=== PATIENT | male | born 1990 | race Caucasian/White ===

== ENCOUNTER 2018-06-18 18:05 | Inpatient (IN) | payer MEDICARE, MEDICAID, SELFPAY ==
[2018-06-18 18:33] VITALS: BP 133/82; PULSE 91; RESP 22; TEMP 36.8; O2SAT 99
--- NOTE | 2018-06-18 19:00 | W.ED.GENAD ---
Discharge Plan Discharge Details Chief Complaint: Cellulitis Reason For Visit: CELLULITIS WITH ABSCESS Admit Date/Time: 06/18/18 21:07 Admit Provider: Rc Ordaz Attending Provider: Rc Ordaz Primary Care Provider: Norberto Kern ED Provider: Darwin Renteria Discharge Data Discharge Date/Time-TO BE ENTERED AT DEPARTURE: 06/18/18 22:05 Medical Decision Making Plan to start IV. Evaluate typical labs for cellulitis including BC and start IV Clindamycin. Will CT arm to evaluate for FB and severity of cellulitis. Patient tolerated Clindamycin. Initial order was for 600mg mg. Pt tolerated well. #00mg dose ordered to piggyback off the original 600mg to give him full dose of 900mg. I agreed to provide pain relief with .5mg of dilaudid. Arm is now starting to ooze from the needle entry site. Less redness and swelling but arm is grossly swollen and red. CT did confirm cellulitis and streaking artifact related to density contrast in the venous system but no measurable fluid to suggest abscess. Labs consistent with infection with elevated WBC and CRP. I called and discussed case with Dr. Ordaz. He agreed to admission with possible consult with surgery tomorrow. Pt apprised and agrees. Holding orders placed. Pt pending completion of remaining 300mg and admission up stairs. Imaging Data Radiologic Study: Imaging: CT Scan Radiologist's impression: v-rad: 1. Generalized subcutaneous edema and skin thickening about the elbow compatible with cellulitis. 2. Streak artifact related to density of contrast in the venous system, however no measurable fluid collections are seen to suggest abscess. Lab Data Elevated WBC, CRP, anion gap, and ESR to support infectious pathology. HPI General Mode of arrival: ambulatory. Date/Time Provider Initiated Documentation: 06/18/18 18:26. Limitations to Documentation: no limitations. Information obtained by: patient and family (mom). History of Present Illness 28 year old M presents to the emergency department with the chief complaint of Cellulitis , described as moderate, and is localized to the left (arm). Patient did receive the following treatments prior to arrival, none HPI Narrative: 28 y/o male came in with mom with concerns of left arm redness and swelling. Papito admits to injecting Ritalin routinely in his left AC. Today he noticed increased swelling, redness and pain. Denies any symptoms he is anxious and states he does not want to lose his arm. Mom tells me oral pill antibiotics do not work with Papito even as a child. He would need liquid. I did review last visit note back in September of this year, eight months ago he was treated for submandible abscess with IV Clindamycin with good affect. Discharged home on Augmentin but did fail outpatient therapy. Subsequently he was transferred to [facility] for worsening Submandible abscess and was in patient at [facility] for in patient antibiotics. Related Data Home Medications Medication Instructions Recorded Confirmed albuterol sulfate [ProAir HFA] 2 puff INHALATION Q4H PRN PRN #1 05/22/15 06/18/18 hfa.aer.ad pantoprazole [Protonix] 40 mg PO DAILY #90 tab-cap 05/23/17 06/18/18 acetaminophen [Mapap Extra 2 ea PO PRN PRN 08/04/17 06/18/18 Strength] clonazepam 1 mg tablet 1 mg PO BID #60 tab-cap 06/13/18 06/18/18 methylphenidate 20 mg tablet 20 mg PO BID #60 tab-cap MDD 40 mg 06/13/18 06/18/18 Previous Rx's Medication Instructions Recorded albuterol sulfate [ProAir HFA] 2 puff INHALATION Q4H PRN PRN #1 05/22/15 hfa.aer.ad pantoprazole [Protonix] 40 mg PO DAILY #90 tab-cap 05/23/17 clonazepam 1 mg tablet 1 mg PO BID #60 tab-cap 06/13/18 methylphenidate 20 mg tablet 20 mg PO BID #60 tab-cap MDD 40 mg 06/13/18 Allergies Allergy/AdvReac Type Severity Reaction Status Date / Time cephalexin Allergy Intermediate Rash Unverified 06/18/18 18:39 codeine AdvReac Mild GI Upset Unverified 06/18/18 18:39 in pill form only General Stated Complaint: Cellulitis JOANNA: 4 Review of Systems Constitutional Reports as per [facility] ENT Reports system reviewed and no additional complaints, except as docu Cardiovascular Reports system reviewed and no additional complaints, except as docu Respiratory Reports system reviewed and no additional complaints, except as docu Gastrointestinal Reports system reviewed and no additional complaints, except as docu Integumentary/Breasts Reports other (left arm redness and pain) Neurologic Reports system reviewed and no additional complaints, except as [facility] Psych[facility] Reports system reviewed and no additional complaints, except as [facility] Family History Other Drug abuse by member of household Medical History Obesity (Chronic) Mild intermittent asthma without complication (Chronic 06/04/15) Gastroesophageal reflux disease (Chronic) Attention deficit hyperactivity disorder, predominantly inattentive type (Chronic) Anxiety (Chronic 01/18/13) Allergic rhinitis (Chronic) Dental caries (Chronic) Submandibular abscess (Resolved ~09/2017) Social History Smoking/Tobacco Use Status: Never substance use type: heroin Exam Const General: cooperative and anxious Orientation: alert, awake and oriented x3 HENMT Head: normal to inspection Ears: hearing grossly normal bilaterally General nose exam: external nose normal Face and sinus: normal facial exam Mouth: oral mucosae normal Eyes General: appearance normal, both eyes and all related structures Neck Neck: normal visual inspection, full ROM and no lymphadenopathy Resp Effort & Inspection: normal respiratory effort Auscultation: clear to auscultation bilaterally Cardio Rate: regular rate Rhythm: regular rhythm Heart Sounds: S1 normal and S2 normal GI Inspection: normal to inspection Palpation: soft Auscultation: normal bowel sounds Skin General skin exam: erythema (left AC is red, swollen, with tight skin. No drainage. Warm to touch), fluctuance and induration Full body images: 1. Moderate induration with no axilla adenopathy or lymphadema. Neuro General: alert, awake and oriented x3 Cognition: normal cognition Gait: normal gait Extrem Elbow/forearm/wrist images: 1. Area of redness and indration. Drainage oozing from PW site where he injected. Less ROM at the elbow secondary to pain and swelling. Psych Appearance: grossly normal Mood: anxious mood Affect: anxious affect Attitude: cooperative Thought Process: normal Insight: poor Judgment: poor Course Vital Signs Temperature 36.8 C 06/18/18 18:33 Pulse 91 H 06/18/18 18:33 Respiratory Rate 22 06/18/18 18:33 Blood Pressure 133/82 06/18/18 18:33 Pulse Oximetry 99 06/18/18 18:33 Temperature 36.8 C 06/18/18 18:33 Temperature Source Skin 06/18/18 18:33 Pulse 91 H 06/18/18 18:33 Respiratory Rate 22 06/18/18 18:33 Respiratory Effort Non-Labored 06/18/18 18:36 Blood Pressure 133/82 06/18/18 18:33 Blood Pressure Position Sitting 06/18/18 18:33 Pulse Oximetry 99 06/18/18 18:33 Oxygen Delivery Method Room Air 06/18/18 18:33 Oxygen Flow Rate 0 06/18/18 18:33 Pain Level 8 06/18/18 18:33 Lab/Test Results Lab/Test Results: 06/18/18 18:55 Blood Blood Culture - Pending 06/18/18 18:55 Blood Blood Culture - Pending
--- NOTE | 2018-06-18 19:03 | ED.GENADUL_ITS ---
Discharge Plan Discharge Details Chief Complaint: Cellulitis Reason For Visit: CELLULITIS WITH ABSCESS Admit Date/Time: 06/18/18 21:07 Admit Provider: Rc Ordaz Attending Provider: Rc Ordaz Primary Care Provider: Norberto Kern ED Provider: Darwin Renteria Discharge Data Discharge Date/Time-TO BE ENTERED AT DEPARTURE: 06/18/18 22:05 Medical Decision Making Plan to start IV. Evaluate typical labs for cellulitis including BC and start IV Clindamycin. Will CT arm to evaluate for FB and severity of cellulitis. Patient tolerated Clindamycin. Initial order was for 600mg mg. Pt tolerated well. #00mg dose ordered to piggyback off the original 600mg to give him full dose of 900mg. I agreed to provide pain relief with .5mg of dilaudid. Arm is now starting to ooze from the needle entry site. Less redness and swelling but arm is grossly swollen and red. CT did confirm cellulitis and streaking artifact related to density contrast in the venous system but no measurable fluid to suggest abscess. Labs consistent with infection with elevated WBC and CRP. I called and discussed case with Dr. Ordaz. He agreed to admission with possible consult with surgery tomorrow. Pt apprised and agrees. Holding orders placed. Pt pending completion of remaining 300mg and admission up stairs. Imaging Data Radiologic Study: Imaging: CT Scan Radiologist's impression: v-rad: 1. Generalized subcutaneous edema and skin thickening about the elbow compatible with cellulitis. 2. Streak artifact related to density of contrast in the venous system, however no measurable fluid collections are seen to suggest abscess. Lab Data Elevated WBC, CRP, anion gap, and ESR to support infectious pathology. HPI General Mode of arrival: ambulatory . Date/Time Provider Initiated Documentation: 06/18/18 18:26 . Limitations to Documentation: no limitations . Information obtained by: patient and family (mom) . History of Present Illness 28 year old M presents to the emergency department with the chief complaint of Cellulitis , described as moderate, and is localized to the left (arm). Patient did receive the following treatments prior to arrival, none HPI Narrative: 28 y/o male came in with mom with concerns of left arm redness and swelling. Papito admits to injecting Ritalin routinely in his left AC. Today he noticed increased swelling, redness and pain. Denies any symptoms he is anxious and states he does not want to lose his arm. Mom tells me oral pill antibiotics do not work with Papito even as a child. He would need liquid. I did review last visit note back in September of this year, eight months ago he was treated for submandible abscess with IV Clindamycin with good affect. Discharged home on Augmentin but did fail outpatient therapy. Subsequently he was [place] [facility] [place]mand[place] and was in patient [place] [facility] [place] patient antibiotics. Related Data Home Medications Medication Instructions Recorded Confirmed albuterol sulfate [ProAir HFA] 2 puff INHALATION Q4H PRN PRN #1 05/22/15 hfa.aer.ad pantoprazole [Protonix] 40 mg PO DAILY #90 tab-cap 05/23/17 06/18/18 acetaminophen [Mapap Extra 2 ea PO PRN PRN 08/04/17 06/18/18 Strength] clonazepam 1 mg tablet 1 mg PO BID #60 tab-cap 06/13/18 06/18/18 methylphenidate 20 mg tablet 20 mg PO BID #60 tab-cap MDD 40 mg 06/13/18 Previous Rx's Medication Instructions Recorded albuterol sulfate [ProAir HFA] 2 puff INHALATION Q4H PRN PRN #1 05/22/15 hfa.aer.ad pantoprazole [Protonix] 40 mg PO DAILY #90 tab-cap 05/23/17 clonazepam 1 mg tablet 1 mg PO BID #60 tab-cap 06/13/18 methylphenidate 20 mg tablet 20 mg PO BID #60 tab-cap MDD 40 mg 06/13/18 Allergies Allergy/AdvReac Type Severity Reaction Status Date / Time cephalexin Allergy Intermediate Rash Unverified 06/18/18 18:39 codeine AdvReac Mild GI Upset Unverified 06/18/18 18:39 in pill form only General Stated Complaint: Cellulitis JOANNA: 4 Review of Systems Constitutional Reports as per [facility] ENT Reports system reviewed and no additional complaints, except as docu Cardiovascular Reports system reviewed and no additional complaints, except as docu Respiratory Reports system reviewed and no additional complaints, except as docu Gastrointestinal Reports system reviewed and no additional complaints, except as docu Integumentary/Breasts Reports other (left arm redness and pain) Neurologic Reports system reviewed and no additional complaints, [facility] Psych[facility] Reports system reviewed and no additional complaints, [facility] Family History Other Drug abuse by member of household Medical History Obesity (Chronic) Mild intermittent asthma without complication (Chronic 06/04/15) Gastroesophageal reflux disease (Chronic) Attention deficit hyperactivity disorder, predominantly inattentive type ( Chronic) Anxiety (Chronic 01/18/13) Allergic rhinitis (Chronic) Dental caries (Chronic) Submandibular abscess (Resolved ~09/2017) Social History Smoking/Tobacco Use Status: Never substance use type: heroin Exam Const General: cooperative and anxious Orientation: alert, awake and oriented x3 HENMT Head: normal to inspection Ears: hearing grossly normal bilaterally General nose exam: external nose normal Face and sinus: normal facial exam Mouth: oral mucosae normal Eyes General: appearance normal, both eyes and all related structures Neck Neck: normal visual inspection, full ROM and no lymphadenopathy Resp Effort & Inspection: normal respiratory effort Auscultation: clear to auscultation bilaterally Cardio Rate: regular rate Rhythm: regular rhythm Heart Sounds: S1 normal and S2 normal GI Inspection: normal to inspection Palpation: soft Auscultation: normal bowel sounds Skin General skin exam: erythema (left AC is red, swollen, with tight skin. No drainage. Warm to touch), fluctuance and induration Full body images: 2 1. Moderate induration with no axilla adenopathy or lymphadema. Neuro General: alert, awake and oriented x3 Cognition: normal cognition Gait: normal gait Extrem Elbow/forearm/wrist images: 2 1. Area of redness and indration. Drainage oozing from PW site where he injected. Less ROM at the elbow secondary to pain and swelling. Psych Appearance: grossly normal Mood: anxious mood Affect: anxious affect Attitude: cooperative Thought Process: normal Insight: poor Judgment: poor Course Vital Signs Temperature 36.8 C 06/18/18 18:33 Pulse 91 H 06/18/18 18:33 Respiratory Rate 22 06/18/18 18:33 Blood Pressure 133/82 06/18/18 18:33 Pulse Oximetry 99 06/18/18 18:33 Temperature 36.8 C 06/18/18 18:33 Temperature Source Skin 06/18/18 18:33 Pulse 91 H 06/18/18 18:33 Respiratory Rate 22 06/18/18 18:33 Respiratory Effort Non-Labored 06/18/18 18:36 Blood Pressure 133/82 06/18/18 18:33 Blood Pressure Position Sitting 06/18/18 18:33 Pulse Oximetry 99 06/18/18 18:33 Oxygen Delivery Method Room Air 06/18/18 18:33 Oxygen Flow Rate 0 06/18/18 18:33 Pain Level 8 06/18/18 18:33 Lab/Test Results Lab/Test Results: 06/18/18 18:55 Blood Blood Culture - Pending 06/18/18 18:55 Blood Blood Culture - Pending
[2018-06-18 19:51] LABS: Abs Immature Grans 0.05 k/cumm (0.0-0.09); HCT 42.2 % (40.0-50.0); HGB 14.4 g/dL (13.5-17.5); Lactate-non-spesis 1.4 mmol/L (0.6-1.4); Mean Corp. HGB Concentration 34.1 g/dL (32.0-36.0); Mean Corpuscular Hemoglobin 29.2 pg (27.0-33.0); Mean Corpuscular Volume 85.6 fL (80-95); Mean Platelet Volume 10.8 fL (8.0-11.0); Platelet Count 338 x1000/uL (130-400); RBC 4.93 m/cumm (4.50-6.00); White Blood Cell Count 17.05 k/cumm (4.4-10.8)
[2018-06-18] MEDS: Omnipaque 350 MG/ML 100 ML BTL IJ (20:13)
--- NOTE | 2018-06-18 20:14 | DI.CT_ITS ---
SYMPTOMS/DIAGNOSIS: CELLULITIS FROM INJECTING RITALIN INTO LEFT AC CT SCAN OF THE LEFT UPPER EXTREMITY: CT scan of the left upper extremity was performed from the mid humerus to the mid forearm. The bones are intact. No lytic or sclerotic lesions are seen. No erosions or periostitis is seen to suggest acute osteomyelitis. There is artifact in the extremity due to the density of the contrast. No focal fluid collections are seen to suggest abscess. There is edema seen in the subcutaneous tissues about the elbow, suggestive of cellulitis. IMPRESSION: 1. Artifact in the upper extremity due to the contrast density. 2. Generalized edema in the subcutaneous tissues of the left upper extremity suggestive of cellulitis. No focal fluid collection is seen to suggest abscess. 3. No osseous findings to suggest acute osteomyelitis.
[2018-06-18 20:19] LABS: ALT 33 U/L (12-78); AST 18 U/L (15-37); Albumin 3.6 g/dL (3.4-5.0); Alkaline Phosphatase 80 U/L (46-116); Anion Gap 11.8 mmol/L (3-11); BUN 9 mg/dL (7-18); C-Reactive Protein 8.81 mg/dL (0.0-0.3); CO2 27.2 mmol/L (21.0-32.0); CREATININE 0.84 mg/dL (0.70-1.30); Calcium 9.3 mg/dL (8.5-10.1); Chloride 99 mmol/L (98-107); Glucose 76 mg/dL (70-100); Potassium 3.7 mmol/L (3.5-5.1); Sodium 138 mmol/L (136-145); Total Protein 8.3 g/dL (6.4-8.2)
[2018-06-18] MEDS: CLINDAMYCIN 600 MG/50 ML BAG 100 MG IVPB (20:34)
[2018-06-18] MEDS: Normal Saline 1,000 ML 1000 ML IV (20:34)
[2018-06-18] MEDS: Normal Saline Flush 10 ML SYR IVP (20:35)
[2018-06-18 20:52] LABS: Absolute Eosinophil Count 0.34 k/cumm (0.0-0.7); Absolute Monocyte Count 1.71 k/cumm (0.11-0.7); Absolute Neutrophil Count 12.11 k/cumm (1.2-6.7); Atypical Lymphocytes % 3
[2018-06-18 20:53] LABS: Diff Comment Manual Differential; RBC Morphology Normal
--- NOTE | 2018-06-18 21:06 | DI.VRAD_ITS ---
EXAM: CT Left Upper Extremity With Intravenous Contrast, Elbow CLINICAL HISTORY: 28 years old, male; Signs and symptoms; Swelling; Elbow; Left; Patient HX: Cellulitus from injecting ritalin into left ac TECHNIQUE: Axial computed tomography images of the left elbow with intravenous contrast. All CT scans at this facility use at least one of these dose optimization techniques: automated exposure control; mA and/or kV adjustment per patient size (includes targeted exams where dose is matched to clinical indication); or iterative reconstruction. Coronal and sagittal reformatted images were created and reviewed. CONTRAST: 100 mL of omni 350 administered intravenously. COMPARISON: CR LEFT ELBOW COMPLETE 02/08/2012 11:28 AM FINDINGS: Bones/joints: No acute fracture or subluxation. No suspicious erosions or periostitis to suggest osteomyelitis. Soft tissues: Generalized subcutaneous edema and skin thickening about the elbow. Vasculature: Streak artifact related to density of contrast in the venous system. No gross measurable fluid collections are seen to suggest abscess. IMPRESSION: 1. Generalized subcutaneous edema and skin thickening about the elbow compatible with cellulitis. 2. Streak artifact related to density of contrast in the venous system, however no measurable fluid collections are seen to suggest abscess. Dictated and Authenticated by: Celeste Sosa MD. Ordering:YOU MAY MD
[2018-06-18 21:08] LABS: ESR 44 MM/HR (0-15)
[2018-06-18] MEDS: CLINDAMYCIN 300 MG/50 ML BAG 100 MG IVPB (21:25)
--- NOTE | 2018-06-18 22:15 | W.PM.HP.N ---
Date of service: 06/18/18 Time of Service: 22:16 Assessment and Plan (1) Cellulitis of left arm: Current visit: Yes Status: Acute continue iv clindamycin 900 mg IVPB Q6hr, monitor induration/redness; consult surgeon to evaluate in the a.m. to decide upon incision and drainage (no discernible abscess on CT of arm). Patient understands that he needs to quit injection of substances into his limbs. He states that he is presently going to methadone clinic to try to get clean from heroin injections. If his blood cultures show no growth and he is responding to the iv clindamycin, then he could potentially be switched to oral clindamycin and watched for 24hr and discharged home on Tuesday to complete two week course of antibiotics. If his blood cultures are positive then he should be evaluated for endocarditis. I spoke w/ Dr. Fry and advised of the request for consult but indicated that I felt that the consult could wait until morning as there was no visible abscess on the CT scan and no signs of fasciitis. History of Present Illness Chief Complaint: Red swollen left forearm after injecting Ritalin Narrative: 28 yr old male IV drug abuser (regularly uses heroin) who has been injecting Ritalin (prescribed for his ADHD) into his left forearm, now presents to the E.R. with left arm swelling and redness and pain x 2 days. Workup in the E.D. reveals cellulitis of his left forearm/antecubital site. He has a leukocytosis of 17,000 with elevated ESR of 44 and CRP of 8.81 but no lactic acidosis and normal renal and liver function tests. CT of his left upper extremity with contrast was c/w cellulitis (edema of subcutaneous tissue and skin thickening about the elbow but no measurable fluid collections to suggest any abscess). Patient had blood cultures drawn in the ER and was started on Clindamycin 900 mg IVPB in the ER and is now admitted on observation status for further iv antibiotics and surgical consultation in the a.m. for evaluation of need for incision and drainage although no visible abscess was seen on the CT scan. Review of Systems Constitutional Denies chills and Denies fever(s) Cardiovascular Reports system reviewed and no additional complaints, except as docu Respiratory Reports system reviewed and no additional complaints, except as docu Musculoskeletal Reports as per HPI Integumentary/Breasts Reports as per HPI PFSH Family History Other Drug abuse by member of household Medical History Obesity (Chronic) Mild intermittent asthma without complication (Chronic 06/04/15) Gastroesophageal reflux disease (Chronic) Attention deficit hyperactivity disorder, predominantly inattentive type (Chronic) Anxiety (Chronic 01/18/13) Allergic rhinitis (Chronic) Dental caries (Chronic) Submandibular abscess (Resolved ~09/2017) Social History Smoking/Tobacco Use Status: Never substance use type: heroin Meds Home Medications Medication Instructions Recorded Confirmed Type albuterol sulfate [ProAir HFA] 2 puff INHALATION Q4H PRN PRN #1 05/22/15 06/18/18 Rx hfa.aer.ad pantoprazole [Protonix] 40 mg PO DAILY #90 tab-cap 05/23/17 06/18/18 Rx acetaminophen [Mapap Extra 2 ea PO PRN PRN 08/04/17 06/18/18 History Strength] clonazepam 1 mg tablet 1 mg PO BID #60 tab-cap 06/13/18 06/18/18 Rx methylphenidate 20 mg tablet 20 mg PO BID #60 tab-cap MDD 40 mg 06/13/18 06/18/18 Rx Allergies Allergy/AdvReac Type Severity Reaction Status Date / Time cephalexin Allergy Intermediate Rash Unverified 06/18/18 18:39 codeine AdvReac Mild GI Upset Unverified 06/18/18 18:39 in pill form only Exam Const General: cooperative, healthy appearing and anxious Nutritional Appearance: obese Orientation: alert, awake and oriented x3 HENMT Head: normal to inspection, normocephalic and atraumatic Mouth: oral mucosae normal Teeth and gingiva: abnormal tooth or associated gingiva (gingivitis and dental caries) Neck Neck: normal visual inspection, full ROM, no lymphadenopathy and trachea midline Carotids: normal carotid upstroke Lymphatic: no lymphadenopathy noted Resp Effort & Inspection: normal respiratory effort and able to speak in complete sentences Auscultation: clear to auscultation bilaterally Cardio Jugular venous pressure: no JVD Palpation: normal PMI Rate: regular rate Rhythm: regular rhythm Heart Sounds: S1 normal, S2 normal, normal, physiologic split S2 and no murmurs GI Inspection: normal to inspection Palpation: soft Auscultation: normal bowel sounds Skin Lesions: lesion noted (left antecubital space w/ area of induration that is several cm in diameter and with central pinpoint opening w/ pus draining from opening) Full body images: 1. area of induration and redness w/ pinpoint opening draining pus over left antecubital site Extrem Left upper extremity: elbow/forearm Details: abnormal to inspection Details: erythema (area of induration and redness that is several cm in diameter w/ central area w/ pinpoint opening draining pus), tenderness, swelling and warmth Psych Appearance: grossly normal Mental Status: mental status grossly normal Speech and Movement: speech and movement normal Mood: anxious mood Affect: normal affect Attitude: cooperative Thought Process: normal Thought Content: normal Insight: insight good Judgment: fair Results Imaging Additional studies: CT left upper extremity w/ iv contrast, elbow: FINDINGS: Bones/joints: No acute fracture or subluxation. No suspicious erosions or periostitis to suggest osteomyelitis. Soft tissues: Generalized subcutaneous edema and skin thickening about the elbow. Vasculature: Streak artifact related to density of contrast in the venous system. No gross measurable fluid collections are seen to suggest abscess. IMPRESSION: 1. Generalized subcutaneous edema and skin thickening about the elbow compatible with cellulitis. 2. Streak artifact related to density of contrast in the venous system, however no measurable fluid collections are seen to suggest abscess. Dictated and Authenticated by: Celeste Sosa MD. Ordering:YOU MAY MD Labs : 06/18/18 19:20 06/18/18 19:20 Laboratory Results - last 24 hr 06/18/18 06/18/18 06/18/18 19:20 19:20 19:20 WBC 17.05 H RBC 4.93 Hgb 14.4 Hct 42.2 MCV 85.6 MCH 29.2 MCHC 34.1 RDW 13.0 Plt Count 338 MPV 10.8 Immature Gran % 0.0 Neutrophils % 68.0 Lymphocytes % 14.0 Monocytes % 10.0 Eosinophils % 2.0 Basophils % 0.0 Absolute Neutrophils 12.11 H Band Neutrophils 3.0 Absolute Lymphocytes 2.90 Absolute Monocytes 1.71 H Absolute Eosinophils 0.34 Absolute Basophils 0.00 Differential Comment Manual differential Atypical Lymphocytes 3 RBC Morphology Normal ESR 44 H Sodium 138 Potassium 3.7 Chloride 99 Carbon Dioxide 27.2 Anion Gap 11.8 H BUN 9 Creatinine 0.84 Estimated GFR/1.73 m2 >= 60.00 Glucose 76 Lactate 1.4 Calcium 9.3 Total Bilirubin 1.0 AST 18 ALT 33 Alkaline Phosphatase 80 C-Reactive Protein 8.81 H Total Protein 8.3 H Albumin 3.6 Last Vital Signs Temp 36.8 C 06/18/18 18:33 Pulse 91 H 06/18/18 18:33 Resp 22 06/18/18 18:33 BP 133/82 06/18/18 18:33 Pulse Ox 99 06/18/18 18:33
[2018-06-18 22:16] VITALS: BP 149/73; PULSE 73; RESP 20; TEMP 37.4; O2SAT 99
[2018-06-18] MEDS: Acetaminophen 325 MG TAB PO (23:19)
[2018-06-19 00:36] VITALS: BP 149/73; PULSE 73; RESP 20; TEMP 37.4; O2SAT 99
[2018-06-19] MEDS: CLINDAMYCIN 900 MG/50 ML BAG 50 MG IVPB ×4 (03:10→21:55)
[2018-06-19 03:16] VITALS: BP 113/67; PULSE 50; RESP 16; TEMP 35.9; O2SAT 95
[2018-06-19 07:20] VITALS: BP 134/80; PULSE 64; RESP 18; TEMP 36.2; O2SAT 98
[2018-06-19 07:27] LABS: Abs Immature Grans 0.03 k/cumm (0.0-0.09); Absolute Basophil Count 0.02 k/cumm (0.0-0.2); Absolute Eosinophil Count 0.56 k/cumm (0.0-0.7); Absolute Lymphocyte Count 3.43 k/cumm (1.2-3.4); Absolute Monocyte Count 1.59 k/cumm (0.11-0.7); Basophils % 0.2; Eosinophils % 4.7; HGB 13.6 g/dL (13.5-17.5); Immature Grans % 0.3; Lymphocytes % 28.9; Mean Corpuscular Hemoglobin 29.3 pg (27.0-33.0); Mean Corpuscular Volume 86.2 fL (80-95); Mean Platelet Volume 10.1 fL (8.0-11.0); Monocytes % 13.4; Neutrophils % 52.5; Platelet Count 291 x1000/uL (130-400); RBC 4.64 m/cumm (4.50-6.00); White Blood Cell Count 11.87 k/cumm (4.4-10.8)
[2018-06-19 07:31] LABS: Absolute Neutrophil Count 6.23 k/cumm (1.2-6.7)
--- NOTE | 2018-06-19 07:39 | SCONE_ITS ---
Documented by User: JOAN Matos 06/19/18 08:41 Date of service: 06/19/18 Time of Service: 07:37 Assessment and Plan (1) Cellulitis of left arm: Current visit: Yes Status: Acute A// Left forearm cellulitis. Significant induration, swelling and erythema of the left antecubital space and forearm. Drainage noted of white purluent material, this is most likely from the swelling and infection of subcutaneous tissues. CT scan did not show an abscess. There are currently no indications for I&D. P// No indications for I&D Continue IV Antibiotics for Cellulitis of left forearm History of Present Illness Chief Complaint: Cellulitis of left forearm Narrative: 28 y/o male presents with complaints of increased pain, redness and swelling of his left forearm x 2 days. His pain increases with movement of his left arm especially with elbow flexion and extension. He admits to injecting Ritalin routinely in his left antecubital area. He denies fevers or chills. Review of Systems Constitutional Denies chills, Denies fever(s) and Denies night sweats Integumentary/Breasts Reports erythema, Reports skin pain, Reports skin swelling and Reports wounds Comments: Erythema, edema and pain throughout left forearm and antecubital space that extends to upper arm. He reports that since starting IV antibiotics that the erythema has decreased significantly. [facility] Family History Other Drug abuse by member of household Medical History Obesity (Chronic) Mild intermittent asthma without complication (Chronic 06/04/15) Gastroesophageal reflux disease (Chronic) Attention deficit hyperactivity disorder, predominantly inattentive type ( Chronic) Anxiety (Chronic 01/18/13) Allergic rhinitis (Chronic) Dental caries (Chronic) Submandibular abscess (Resolved ~09/2017) Social History Smoking/Tobacco Use Status: Never substance use type: heroin Exam Const General: cooperative and in distress mild Orientation: alert and oriented x3 Resp Effort & Inspection: normal respiratory effort, no audible wheezes and no cough Skin General skin exam: erythema (Previous outline from admission noted, erythema has lessened near these. Significant erythema near indurated area with area of purluent drainage.) and induration (Proximal forearm that extends into distal upper arm. ) Rashes: no rashes Trauma: puncture (Left antecubital space- white, purluent material presents and minimal expressed. Scars noted from previous injection sites. ) Results Last Vital Signs Temp 35.9 C L 06/19/18 03:16 Pulse 50 L 06/19/18 03:16 Resp 16 06/19/18 03:16 BP 113/67 06/19/18 03:16 Pulse Ox 95 06/19/18 03:16 Labs : 06/19/18 07:09 06/18/18 19:20 Laboratory Results - last 24 hr 06/18/18 06/18/18 06/18/18 19:20 19:20 19:20 WBC 17.05 H RBC 4.93 Hgb 14.4 Hct 42.2 MCV 85.6 MCH 29.2 MCHC 34.1 RDW 13.0 Plt Count 338 MPV 10.8 Immature Gran % 0.0 Neutrophils % 68.0 Lymphocytes % 14.0 Monocytes % 10.0 Eosinophils % 2.0 Basophils % 0.0 Absolute Neutrophils 12.11 H Band Neutrophils 3.0 Absolute Lymphocytes 2.90 Absolute Monocytes 1.71 H Absolute Eosinophils 0.34 Absolute Basophils 0.00 Differential Comment Manual differential Atypical Lymphocytes 3 RBC Morphology Normal ESR 44 H Sodium 138 Potassium 3.7 Chloride 99 Carbon Dioxide 27.2 Anion Gap 11.8 H BUN 9 Creatinine 0.84 Estimated GFR/1.73 m2 >= 60.00 Glucose 76 Lactate 1.4 Calcium 9.3 Total Bilirubin 1.0 AST 18 ALT 33 Alkaline Phosphatase 80 C-Reactive Protein 8.81 H Total Protein 8.3 H Albumin 3.6
[2018-06-19] MEDS: Acetaminophen 325 MG TAB PO (07:49)
[2018-06-19 07:57] LABS: Diff Comment Agrees w/ Instrument; RBC Morphology Normal
[2018-06-19] MEDS: POTASSIUM CHLORIDE 20 MEQ, POTASSIUM CHLORIDE 10 MEQ 30 MEQ PO (09:19)
[2018-06-19] MEDS: Magnesium Oxide 400 MG TAB PO (09:20)
[2018-06-19] MEDS: Normal Saline Flush 10 ML SYR IVP ×3 (10:10→21:56)
--- NOTE | 2018-06-19 11:06 | PDOC.CMIN ---
Care Management Initial Assess REASON FOR HOSPITALIZATION:: Cellulitis with Abscess PAST MEDICAL HISTORY/PAST SURGICAL HISTORY:: Allergic rhinitis, Anxiety, ADHD, dental caries, GERD, mild intermittant asthma without complication, obesity, submandibular abscess PREVIOUS FUNCTIONAL STATUS/SOCIAL/FAMILY SUPPORTS:: Papito resides in [place], [place]. His mother is close by in [place], [place], Papito shares that she has a strong Yazidi hailee. Papito shares his father was an alcoholic who from possible asbestos exposure when Papito was in High School. Papito talks about his childhood-riddled with anxiety and resulting stomach illness that kept him out of school much of the time. He reports relocating to [place] from [facility] while still young and dropping out of high school due to his anxiety. He reports achieving his GED. Papito shares deep laden guilt over having two children prior to turning [age] and leaving them and their mother due to feeling trapped. He states his children's mother is now also a drug addict and has not seen their children in four monthes. He feels personally responsible for this outcome. CURRENT FUNCTIONAL STATUS:: Papito was lying in bed when CM met with him. He was forthcoming with information and fully engaged with assessment. CM encourages Papito to seek inpatient treatment to explore his past choices and the influence of his current choices as well as to have a break from his current circumstance. [place] in the [place] and reports haivng triggers for substance use constantly including his own siblings. He processes arriving at this point in his life and wanting to avoid outcomes if he does not change his current direction; he is able to verbalize this information openly. ADVANCE DIRECTIVES:: None on file at [facility] Has patient been provided with information about the portal?: Yes Did the patient sign up for the portal?: No CODE STATUS:: Full Code INSURANCE COVERAGE / FINANCIAL ISSUES:: Medicaid. Medicare CURRENT HOME/COMMUNITY SERVICES/EQUIPMENT:: Methadone [facility]-frequent absentee per RNCC: Lois; 45mg/daily last dose 06/15/18. [facility] for transportation. PRIMARY CARE PHYSICIAN:: Norberto Kern MD-[facility] POTENTIAL DISCHARGE NEEDS:: Follow up appointment with PCP, resumption of [facility] services, resources for inpatient services outreach. PATIENT/FAMILY EDUCATION NEEDS:: Review of instructions, discussion of self care needs; [facility], packet of inpatient and community based resources provided for patient substance abuse outreach. ANTICIPATED BARRIERS TO DISCHARGE:: None identified. TRANSPORTATION:: Via private vehicle with family. PLAN:: Papito will return home when ready per MD. CM encouraged Papito to seek treatment and offered support to do so. He will follow up with his PCP and plan of care as prescribed. He will transport via private vehicle with family or a friend.
--- NOTE | 2018-06-19 11:28 | W.PM.PROGNOT ---
Assessment and Plan (1) Cellulitis of left arm: Current visit: Yes Status: Acute Continue IV clindamycin Q6H for now. Blood and wound cultures pending. LUE CT scan did not show a fluid collection suggestive of an abscess. Surgical consult performed today who agrees there is currently no need for I&D. If blood cultures are positive should proceed with ECHO to evaluate for endocarditis. May require a EDWIN if TTE shows no vegitation. Will resume methadone for hx heroin abuse. CM involved in discharge planning and I have requested they look into community resources so Papito has a reliable means of getting to [facility]. Subjective Interval history since last seen: Papito is a 28 yr old male IV drug abuser who typically uses heroin, however most recently has been injecting ritalin into his left forearm who was admitted last night with cellulitis to the [facility]. Workup in the E.D. showed a cellulitis of his left forearm/antecubital site and leukocytosis of 17,000 with elevated ESR of 44 and CRP of 8.81 but no lactic acidosis and normal renal and liver function tests. CT of his left upper extremity with contrast was c/w cellulitis (edema of subcutaneous tissue and skin thickening about the elbow but no measurable fluid collections to suggest any abscess). Papito did have a surgical consult this morning with the PA who did not current recommend I&D as there was no evidence of a fluid collection. The puncture site continues to drain thick, purulent material and is quite tender to touch. Papito is also growing increasingly concerned regarding not having his methadone for the past 4 days. Is starting to feel like he is experiencing withdrawal symptoms, including diaphoresis, abd cramping and nausea. Nursing contacted [facility] who verified that he normally takes 45 mg daily of methadone. Apparently there has been some issues with his attendance and he is inconsistently getting there. Papito states that he relies on [facility] and family members to get him to the clinic on time. [facility] does not operate on the weekends, so he often can't make it to the clinic before 10 am. Also, his siblings are also users and often find gonzales excuses not to pick him up. He is interested in living a drug free life, but admits this is difficult since most of his family members use. Exam Const General: cooperative, healthy appearing, in distress mild and anxious Nutritional Appearance: obese Orientation: alert, awake and oriented x3 HENMT Head: normal to inspection, normocephalic and atraumatic Ears: hearing grossly normal bilaterally General nose exam: external nose normal Face and sinus: normal facial exam Mouth: oral mucosae normal Teeth and gingiva: abnormal tooth or associated gingiva (gingivitis and dental caries) Eyes General: appearance normal, both eyes and all related structures Neck Neck: normal visual inspection, full ROM, no lymphadenopathy and trachea midline Carotids: normal carotid upstroke Lymphatic: no lymphadenopathy noted Resp Effort & Inspection: normal respiratory effort, able to speak in complete sentences, no audible wheezes and no cough Auscultation: clear to auscultation bilaterally Cardio Jugular venous pressure: no JVD Palpation: normal PMI Rate: regular rate Rhythm: regular rhythm Heart Sounds: S1 normal, S2 normal, normal, physiologic split S2 and no murmurs GI Inspection: normal to inspection Palpation: soft Auscultation: normal bowel sounds Skin General skin exam: erythema (Previous outline from admission noted, erythema has lessened near these. Significant erythema near indurated area with area of purluent drainage.), fluctuance and induration (Proximal forearm that extends into distal upper arm. ) Lesions: lesion noted (left antecubital space w/ area of induration that is several cm in diameter and with central pinpoint opening w/ pus draining from opening) Rashes: no rashes Trauma: puncture (Left antecubital space- white, purluent material presents and minimal expressed. Scars noted from previous injection sites. ) Neuro General: alert, awake and oriented x3 Cognition: normal cognition Gait: normal gait Extrem Left upper extremity: elbow/forearm Details: abnormal to inspection, tenderness, swelling and warmth Psych Appearance: grossly normal Mental Status: mental status grossly normal Speech and Movement: speech and movement normal Mood: anxious mood Affect: normal affect Attitude: cooperative Thought Process: normal Thought Content: normal Insight: insight good and poor Judgment: fair and poor Objective Objective Clinical Data: Abnormal lab results 06/18/18 06/18/18 06/19/18 Range/Units 19:20 19:20 07:09 WBC 17.05 H 11.87 H D (4.4-10.8) k/cumm Absolute Neutrophils 12.11 H (1.2-6.7) k/cumm Absolute Lymphocytes 3.43 H (1.2-3.4) k/cumm Absolute Monocytes 1.71 H 1.59 H (0.11-0.7) k/cumm ESR 44 H (0-15) MM/HR Anion Gap 11.8 H (3-11) mmol/L C-Reactive Protein 8.81 H (0.0-0.3) mg/dL Total Protein 8.3 H (6.4-8.2) g/dL Vital Signs Temperature 36.2 C L 06/19/18 07:20 Temperature Source Tympanic 06/19/18 07:20 Pulse 64 06/19/18 07:20 Pulse Rhythm Regular 06/19/18 07:50 Respiratory Rate 18 06/19/18 07:20 Respiratory Effort Non-Labored 06/19/18 07:50 Respiratory Depth Normal 06/19/18 07:50 Respiratory Pattern Normal 06/19/18 07:50 Blood Pressure 134/80 06/19/18 07:20 Blood Pressure Position Sitting 06/18/18 18:33 Pulse Oximetry 98 06/19/18 07:20 Oxygen Delivery Method Room Air 06/19/18 07:20 Oxygen Flow Rate 0 06/19/18 07:20 Pain Level 6 06/19/18 07:50 Intake & Output 06/18/18 06/18/18 06/19/18 11:59 23:59 11:59 Intake Total 880 / 880 Balance 880 / 880 Weight 122.47 kg 117 kg Intake: IV 160 / 160 Oral 720 / 720 Other: Comment Pt voiding independently in toilet. Voiding Methods Toilet Laboratory Results WBC 11.87 k/cumm (4.4-10.8) H D 06/19/18 07:09 RBC 4.64 m/cumm (4.50-6.00) 06/19/18 07:09 Hgb 13.6 g/dL (13.5-17.5) 06/19/18 07:09 Hct 40.0 % (40.0-50.0) 06/19/18 07:09 MCV 86.2 fL (80-95) 06/19/18 07:09 MCH 29.3 pg (27.0-33.0) 06/19/18 07:09 MCHC 34.0 g/dL (32.0-36.0) 06/19/18 07:09 RDW 13.0 % (11.8-14.1) 06/19/18 07:09 Plt Count 291 x1000/uL (130-400) 06/19/18 07:09 MPV 10.1 fL (8.0-11.0) 06/19/18 07:09 Immature Gran % 0.3 06/19/18 07:09 Neutrophils % 52.5 06/19/18 07:09 Lymphocytes % 28.9 06/19/18 07:09 Monocytes % 13.4 06/19/18 07:09 Eosinophils % 4.7 06/19/18 07:09 Basophils % 0.2 06/19/18 07:09 Absolute Neutrophils 6.23 k/cumm (1.2-6.7) 06/19/18 07:09 Band Neutrophils 3.0 % 06/18/18 19:20 Absolute Lymphocytes 3.43 k/cumm (1.2-3.4) H 06/19/18 07:09 Absolute Monocytes 1.59 k/cumm (0.11-0.7) H 06/19/18 07:09 Absolute Eosinophils 0.56 k/cumm (0.0-0.7) 06/19/18 07:09 Absolute Basophils 0.02 k/cumm (0.0-0.2) 06/19/18 07:09 Differential Comment Agrees w/ instrument 06/19/18 07:09 Atypical Lymphocytes 3 06/18/18 19:20 RBC Morphology Normal 06/19/18 07:09 ESR 44 MM/HR (0-15) H 06/18/18 19:20 Sodium 138 mmol/L (136-145) 06/18/18 19:20 Potassium 3.7 mmol/L (3.5-5.1) 06/18/18 19:20 Chloride 99 mmol/L (98-107) 06/18/18 19:20 Carbon Dioxide 27.2 mmol/L (21.0-32.0) 06/18/18 19:20 Anion Gap 11.8 mmol/L (3-11) H 06/18/18 19:20 BUN 9 mg/dL (7-18) 06/18/18 19:20 Creatinine 0.84 mg/dL (0.70-1.30) 06/18/18 19:20 Estimated GFR/1.73 m2 >= 60.00 (mL/min/1.73m2) 06/18/18 19:20 Glucose 76 mg/dL (70-100) 06/18/18 19:20 Lactate 1.4 mmol/L (0.6-1.4) 06/18/18 19:20 Calcium 9.3 mg/dL (8.5-10.1) 06/18/18 19:20 Total Bilirubin 1.0 mg/dL (0.2-1.0) 06/18/18 19:20 AST 18 U/L (15-37) 06/18/18 19:20 ALT 33 U/L (12-78) 06/18/18 19:20 Alkaline Phosphatase 80 U/L (46-116) 06/18/18 19:20 C-Reactive Protein 8.81 mg/dL (0.0-0.3) H 06/18/18 19:20 Total Protein 8.3 g/dL (6.4-8.2) H 06/18/18 19:20 Albumin 3.6 g/dL (3.4-5.0) 06/18/18 19:20
--- NOTE | 2018-06-19 11:31 | PGE_ITS ---
Assessment and Plan (1) Cellulitis of left arm: Current visit: Yes Status: Acute Continue IV clindamycin Q6H for now. Blood and wound cultures pending. LUE CT scan did not show a fluid collection suggestive of an abscess. Surgical consult performed today who agrees there is currently no need for I&D. If blood cultures are positive should proceed with ECHO to evaluate for endocarditis. May require a EDWIN if TTE shows no vegitation. Will resume methadone for hx heroin abuse. CM involved in discharge planning and I have requested they look into community resources so Papito has a reliable means of getting to [facility]. Subjective Interval history since last seen: Papito is a 28 yr old male IV drug abuser who typically uses heroin, however most recently has been injecting ritalin into his left forearm who was admitted last night with cellulitis to the [facility]. Workup in the E.D. showed a cellulitis of his left forearm/antecubital site and leukocytosis of 17,000 with elevated ESR of 44 and CRP of 8.81 but no lactic acidosis and normal renal and liver function tests. CT of his left upper extremity with contrast was c/w cellulitis (edema of subcutaneous tissue and skin thickening about the elbow but no measurable fluid collections to suggest any abscess). Papito did have a surgical consult this morning with the PA who did not current recommend I&D as there was no evidence of a fluid collection. The puncture site continues to drain thick, purulent material and is quite tender to touch. Papito is also growing increasingly concerned regarding not having his methadone for the past 4 days. Is starting to feel like he is experiencing withdrawal symptoms, including diaphoresis, abd cramping and nausea. Nursing contacted [facility] who verified that he normally takes 45 mg daily of methadone. Apparently there has been some issues with his attendance and he is inconsistently getting there. Papito states that he relies on [facility] and family members to get him to the clinic on time. [facility] does not operate on the weekends, so he often can't make it to the clinic before 10 am. Also, his siblings are also users and often find gonzales excuses not to pick him up. He is interested in living a drug free life, but admits this is difficult since most of his family members use. Exam Const General: cooperative, healthy appearing, in distress mild and anxious Nutritional Appearance: obese Orientation: alert, awake and oriented x3 HENMT Head: normal to inspection, normocephalic and atraumatic Ears: hearing grossly normal bilaterally General nose exam: external nose normal Face and sinus: normal facial exam Mouth: oral mucosae normal Teeth and gingiva: abnormal tooth or associated gingiva (gingivitis and dental caries) Eyes General: appearance normal, both eyes and all related structures Neck Neck: normal visual inspection, full ROM, no lymphadenopathy and trachea midline Carotids: normal carotid upstroke Lymphatic: no lymphadenopathy noted Resp Effort & Inspection: normal respiratory effort, able to speak in complete sentences, no audible wheezes and no cough Auscultation: clear to auscultation bilaterally Cardio Jugular venous pressure: no JVD Palpation: normal PMI Rate: regular rate Rhythm: regular rhythm Heart Sounds: S1 normal, S2 normal, normal, physiologic split S2 and no murmurs GI Inspection: normal to inspection Palpation: soft Auscultation: normal bowel sounds Skin General skin exam: erythema (Previous outline from admission noted, erythema has lessened near these. Significant erythema near indurated area with area of purluent drainage.), fluctuance and induration (Proximal forearm that extends into distal upper arm. ) Lesions: lesion noted (left antecubital space w/ area of induration that is several cm in diameter and with central pinpoint opening w/ pus draining from opening) Rashes: no rashes Trauma: puncture (Left antecubital space- white, purluent material presents and minimal expressed. Scars noted from previous injection sites. ) Neuro General: alert, awake and oriented x3 Cognition: normal cognition Gait: normal gait Extrem Left upper extremity: elbow/forearm Details: abnormal to inspection, tenderness , swelling and warmth Psych Appearance: grossly normal Mental Status: mental status grossly normal Speech and Movement: speech and movement normal Mood: anxious mood Affect: normal affect Attitude: cooperative Thought Process: normal Thought Content: normal Insight: insight good and poor Judgment: fair and poor Objective Objective Clinical Data: Abnormal lab results 06/18/18 06/18/18 06/19/18 Range/Units 19:20 19:20 07:09 WBC 17.05 H 11.87 H D (4.4-10.8) k/cumm Absolute Neutrophils 12.11 H (1.2-6.7) k/cumm Absolute Lymphocytes 3.43 H (1.2-3.4) k/cumm Absolute Monocytes 1.71 H 1.59 H (0.11-0.7) k/cumm ESR 44 H (0-15) MM/HR Anion Gap 11.8 H (3-11) mmol/L C-Reactive Protein 8.81 H (0.0-0.3) mg/dL Total Protein 8.3 H (6.4-8.2) g/dL Vital Signs Temperature 36.2 C L 06/19/18 07:20 Temperature Source Tympanic 06/19/18 07:20 Pulse 64 06/19/18 07:20 Pulse Rhythm Regular 06/19/18 07:50 Respiratory Rate 18 06/19/18 07:20 Respiratory Effort Non-Labored 06/19/18 07:50 Respiratory Depth Normal 06/19/18 07:50 Respiratory Pattern Normal 06/19/18 07:50 Blood Pressure 134/80 06/19/18 07:20 Blood Pressure Position Sitting 06/18/18 18:33 Pulse Oximetry 98 06/19/18 07:20 Oxygen Delivery Method Room Air 06/19/18 07:20 Oxygen Flow Rate 0 06/19/18 07:20 Pain Level 6 06/19/18 07:50 Intake & Output 06/18/18 06/18/18 06/19/18 11:59 23:59 11:59 Intake Total 880 / 880 Balance 880 / 880 Weight 122.47 kg 117 kg Intake: IV 160 / 160 Oral 720 / 720 Other: Comment Pt voiding independently in toilet. Voiding Methods Toilet Laboratory Results WBC 11.87 k/cumm (4.4-10.8) H D 06/19/18 07:09 RBC 4.64 m/cumm (4.50-6.00) 06/19/18 07:09 Hgb 13.6 g/dL (13.5-17.5) 06/19/18 07:09 Hct 40.0 % (40.0-50.0) 06/19/18 07:09 MCV 86.2 fL (80-95) 06/19/18 07:09 MCH 29.3 pg (27.0-33.0) 06/19/18 07:09 MCHC 34.0 g/dL (32.0-36.0) 06/19/18 07:09 RDW 13.0 % (11.8-14.1) 06/19/18 07:09 Plt Count 291 x1000/uL (130-400) 06/19/18 07:09 MPV 10.1 fL (8.0-11.0) 06/19/18 07:09 Immature Gran % 0.3 06/19/18 07:09 Neutrophils % 52.5 06/19/18 07:09 Lymphocytes % 28.9 06/19/18 07:09 Monocytes % 13.4 06/19/18 07:09 Eosinophils % 4.7 06/19/18 07:09 Basophils % 0.2 06/19/18 07:09 Absolute Neutrophils 6.23 k/cumm (1.2-6.7) 06/19/18 07:09 Band Neutrophils 3.0 % 06/18/18 19:20 Absolute Lymphocytes 3.43 k/cumm (1.2-3.4) H 06/19/18 07:09 Absolute Monocytes 1.59 k/cumm (0.11-0.7) H 06/19/18 07:09 Absolute Eosinophils 0.56 k/cumm (0.0-0.7) 06/19/18 07:09 Absolute Basophils 0.02 k/cumm (0.0-0.2) 06/19/18 07:09 Differential Comment Agrees w/ instrument 06/19/18 07:09 Atypical Lymphocytes 3 06/18/18 19:20 RBC Morphology Normal 06/19/18 07:09 ESR 44 MM/HR (0-15) H 06/18/18 19:20 Sodium 138 mmol/L (136-145) 06/18/18 19:20 Potassium 3.7 mmol/L (3.5-5.1) 06/18/18 19:20 Chloride 99 mmol/L (98-107) 06/18/18 19:20 Carbon Dioxide 27.2 mmol/L (21.0-32.0) 06/18/18 19:20 Anion Gap 11.8 mmol/L (3-11) H 06/18/18 19:20 BUN 9 mg/dL (7-18) 06/18/18 19:20 Creatinine 0.84 mg/dL (0.70-1.30) 06/18/18 19:20 Estimated GFR/1.73 m2 >= 60.00 (mL/min/1.73m2) 06/18/18 19:20 Glucose 76 mg/dL (70-100) 06/18/18 19:20 Lactate 1.4 mmol/L (0.6-1.4) 06/18/18 19:20 Calcium 9.3 mg/dL (8.5-10.1) 06/18/18 19:20 Total Bilirubin 1.0 mg/dL (0.2-1.0) 06/18/18 19:20 AST 18 U/L (15-37) 06/18/18 19:20 ALT 33 U/L (12-78) 06/18/18 19:20 Alkaline Phosphatase 80 U/L (46-116) 06/18/18 19:20 C-Reactive Protein 8.81 mg/dL (0.0-0.3) H 06/18/18 19:20 Total Protein 8.3 g/dL (6.4-8.2) H 06/18/18 19:20 Albumin 3.6 g/dL (3.4-5.0) 06/18/18 19:20
[2018-06-19] MEDS: Methadone 10 MG TAB 45 MG PO (11:46)
--- NOTE | 2018-06-19 12:02 | INITIAL_ITS ---
Care Management Initial Assess REASON FOR HOSPITALIZATION:: Cellulitis with Abscess PAST MEDICAL HISTORY/PAST SURGICAL HISTORY:: Allergic rhinitis, Anxiety, ADHD, dental caries, GERD, mild intermittant asthma without complication, obesity, submandibular abscess PREVIOUS FUNCTIONAL STATUS/SOCIAL/FAMILY SUPPORTS:: Papito resides in [place], [place]. His mother is close by in [place], [place], Papito shares that she has a strong Sikhism hailee. Papito shares his father was an alcoholic who from possible asbestos exposure when Papito was in High School. Papito talks about his childhood-riddled with anxiety and resulting stomach illness that kept him out of school much of the time. He reports relocating to [place] from [facility] while still young and dropping out of high school due to his anxiety. He reports achieving his GED. Papito shares deep laden guilt over having two children prior to turning [age] and leaving them and their mother due to feeling trapped. He states his children's mother is now also a drug addict and has not seen their children in four monthes. He feels personally responsible for this outcome. CURRENT FUNCTIONAL STATUS:: Papito was lying in bed when CM met with him. He was forthcoming with information and fully engaged with assessment. CM encourages Papito to seek inpatient treatment to explore his past choices and the influence of his current choices as well as to have a break from his current circumstance. Pap[place] in the [place] and reports haivng triggers for substance use constantly including his own siblings. He processes arriving at this point in his life and wanting to avoid outcomes if he does not change his current direction; he is able to verbalize this information openly. ADVANCE DIRECTIVES:: None on file at [facility] Has patient been provided with information about the portal?: Yes Did the patient sign up for the portal?: No CODE STATUS:: Full Code INSURANCE COVERAGE / FINANCIAL ISSUES:: Medicaid. Medicare CURRENT HOME/COMMUNITY SERVICES/EQUIPMENT:: Methadone [facility]-frequent absentee per RNCC: Lois; 45mg/daily last dose 06/15/18. [facility] for transportation. PRIMARY CARE PHYSICIAN:: Norberto Kern MD-[facility] POTENTIAL DISCHARGE NEEDS:: Follow up appointment with PCP, resumption of [facility] services, resources for inpatient services outreach. PATIENT/FAMILY EDUCATION NEEDS:: Review of instructions, discussion of self care needs; Ask Me Three, packet of inpatient and community based resources provided for patient substance abuse outreach. ANTICIPATED BARRIERS TO DISCHARGE:: None identified. TRANSPORTATION:: Via private vehicle with family. PLAN:: Papito will return home when ready per MD. CM encouraged Papito to seek treatment and offered support to do so. He will follow up with his PCP and plan of care as prescribed. He will transport via private vehicle with family or a friend.
--- NOTE | 2018-06-19 12:28 | PHARADMIT ---
Addendum entered by Lopez Reilly III 06/20/18 16:07: Pharmacy Note Subjective Left forearm cellulitis has regressed since yesterday. Objective VS-OK K+3.4 WBC-10.60 H&H,Plts-OK Assessment Clindamycin continues, awaiting I&D Plan Continue current care Original Note: Admission Pharmacy Clinical Review Cellulitis with Abscess Code Status Full Code Current Weight Wgt- 117 kg Renally Cleared and Narrow Therapeutic Index Meds CrCl~ 156 mL/min Meds-OK QTc Value / Action Taken NA BP Control, Fever BP- 134./80 Tmax- 37.4C Electrolytes reviewed Na- 138 K+3.7 DVT Prophylaxis NONE (AGE) Opiate Usage / Scheduled Bowel Regimen Ordered Yes Yes Plt/SCr for Heparin / Enoxaparin Plts- 291 SCr- 0.84 INR for Warfarin NA H/H stable, WBC/Bands H&H- 13.6/40.0 WBC- 11.87 Antibiotic appropriateness Clindamycin Cultures and Sensitivities Body Fluid, Blood-pending Surgical ABX d/c within 24 hr na DM control / Insulin Dosing BG- 76 Heart Failure (Check EF%) (BRENDEN's, B-Block, Diuretics) none IV to PO Switch No Home Meds Reviewed Yes (On Methadone) Home Meds Not Ordered Klonopin, Ritalin, Protonix Comments c-REATIVE PROTEIN- 8.81
--- NOTE | 2018-06-19 14:54 | CHAPLAIN ---
Papito was sitting up in bed watching tv when I visited. I introduced myself, explained my role and offered support. Papito siad his mom would be in shortly to offer support.
[2018-06-19 15:48] VITALS: BP 109/58; PULSE 76; RESP 20; TEMP 36.7; O2SAT 96
[2018-06-19 23:16] VITALS: BP 108/64; PULSE 58; RESP 20; TEMP 36.4; O2SAT 97
[2018-06-20] MEDS: CLINDAMYCIN 900 MG/50 ML BAG 50 MG IVPB ×4 (03:59→21:44)
[2018-06-20] MEDS: Normal Saline Flush 10 ML SYR IVP ×4 (04:01→21:51)
[2018-06-20 07:15] VITALS: BP 129/69; PULSE 55; RESP 20; TEMP 36.3; O2SAT 95
[2018-06-20 07:40] LABS: Abs Immature Grans 0.03 k/cumm (0.0-0.09); Absolute Basophil Count 0.03 k/cumm (0.0-0.2); Absolute Eosinophil Count 0.44 k/cumm (0.0-0.7); Absolute Lymphocyte Count 3.31 k/cumm (1.2-3.4); Absolute Monocyte Count 0.88 k/cumm (0.11-0.7); Absolute Neutrophil Count 5.91 k/cumm (1.2-6.7); Basophils % 0.3; Eosinophils % 4.2; HGB 12.5 g/dL (13.5-17.5); Immature Grans % 0.3; Lymphocytes % 31.2; Mean Corp. HGB Concentration 32.9 g/dL (32.0-36.0); Mean Corpuscular Hemoglobin 28.8 pg (27.0-33.0); Mean Corpuscular Volume 87.6 fL (80-95); Mean Platelet Volume 10.8 fL (8.0-11.0); Monocytes % 8.3; Neutrophils % 55.7; Platelet Count 304 x1000/uL (130-400); RBC 4.34 m/cumm (4.50-6.00); RBC Distribution Width 12.9 % (11.8-14.1)
[2018-06-20 07:56] LABS: Anion Gap 7.2 mmol/L (3-11); BUN 6 mg/dL (7-18); C-Reactive Protein 3.29 mg/dL (0.0-0.3); CO2 28.8 mmol/L (21.0-32.0); Calcium 9.1 mg/dL (8.5-10.1); Chloride 103 mmol/L (98-107); Glucose 94 mg/dL (70-100); Potassium 3.4 mmol/L (3.5-5.1); Sodium 139 mmol/L (136-145)
[2018-06-20] MEDS: Methadone 10 MG TAB 45 MG PO (08:27)
[2018-06-20] MEDS: Mylanta Suspension 30 ML CUP PO (09:04)
[2018-06-20] MEDS: Potassium Chloride 20 MEQ TABCR 40 MEQ PO (11:27)
--- NOTE | 2018-06-20 13:10 | PGE_ITS ---
Assessment and Plan (1) Cellulitis of left arm: Current visit: Yes Status: Acute Improving. He is afebrile. Blood cultures have yielded no growth at 24 hours, wound cultures are still pending. White blood cell count down today. Continue IV clindamycin every 6 hours. If his blood cultures turn positive, proceed with echocardiogram to evaluate for endocarditis. He may eventually be switched to oral antibiotics if his arm continues to improve and his blood cultures remain negative. Continue to monitor cultures. Repeat lab work in the morning. (2) IV drug abuse: Current visit: Yes Status: Acute He was restarted on methadone yesterday. He was restarted on half of his usual dose per MEREDITH. Will contact his methadone provider today to determine if he should resume his usual dosing or continue on half dose. (3) Discharge planning issues: Current visit: Yes Status: Acute At the present time he reports that he desires to abstain from IV drug use. Care management is working on a discharge plan with him. Consider rehab placement upon discharge versus outpatient therapy. He is currently agreeable to outpatient therapy. (4) DVT prophylaxis: Current visit: Yes Status: Acute Lovenox for DVT prophylaxis. Subjective Interval history since last seen: Papito is a 28 yr old male IV drug abuser who uses heroin, and has recently been injecting ritalin into his left forearm who was admitted 06/18/18 with left upper extremity cellulitis. Workup in the ED showed a cellulitis of his left forearm/antecubital site and leukocytosis of 17 ,000 with elevated ESR of 44 and CRP of 8.81 without lactic acidosis and normal renal and liver function tests. CT of his left upper extremity with contrast was c/w cellulitis it showed edema of subcutaneous tissue and skin thickening around the elbow but no measurable fluid collections to suggest an abscess. Papito had a surgical consult, they did not currently recommend I&D as there was no evidence of a fluid collection. The puncture site continues to drain purulent yellow drainage. He is applying heat, which provides some relief. He feels that the redness has improved drastically. He has been afebrile. Yesterday he was experiencing some withdrawal symptoms including diaphoresis, abdominal cramping and nausea. He was restarted on half of his Methadone dose yesterday and his withdrawal symptoms have resolved. He is eating and drinking without difficulty. He is not currently having cravings for IV drugs. He is interested in abstinence from IV drugs. We discussed inpatient rehab versus having a therapist in the community. He is reluctant to go to inpatient rehab at this time. He would consider outpatient therapy. Care management is providing him with resources as well. Otherwise, he denies SOB, cough, wheezing, chest pain, pressure, abdominal pain , nausea, vomiting, diarrhea. He has some discomfort in his left forearm. He denies any other pain. Exam Narrative Exam Narrative: General: Papito is a well developed 28 year old male, he is awake , alert and oriented. He is pleasant and cooperative. HEENT: Normocephalic, atraumatic. Pupils equal and round. Mucous membranes moist, teeth with caries. Neck: Supple, no JVD. Respiratory: Respirations even and unlabored, lung sounds clear to auscultation throughout. Cardiovascular: Heart has a regular rate and rhythm with normal S1 and S2. No murmur, click, gallop or rub. GI: Normoactive bowel sounds, soft, nontender on palpation, no masses appreciated. Skin: Left upper extremity with mild erythema from his wrist extending up his forearm into the distal aspect of his left upper arm. There is an area of induration at the left antecubital fossa with more intense erythema, there is a central pinpoint opening with purulent yellow drainage. Minimal drainage is expressed from the site. The erythema appears to be receding from the previously outlined area. Extremities: Left upper extremity as above, with edema and warmth. Radial pulses present and palpable. Bilateral lower extremities without clubbing cyanosis or edema. Pedal pulses intact bilaterally. No calf tenderness or swelling. Objective Objective Clinical Data: Abnormal lab results 06/20/18 06/20/18 Range/Units 06:40 06:40 RBC 4.34 L (4.50-6.00) m/cumm Hgb 12.5 L (13.5-17.5) g/dL Hct 38.0 L (40.0-50.0) % Absolute Monocytes 0.88 H (0.11-0.7) k/cumm Potassium 3.4 L (3.5-5.1) mmol/L BUN 6 L (7-18) mg/dL C-Reactive Protein 3.29 H (0.0-0.3) mg/dL Vital Signs Temperature 36.3 C L 06/20/18 07:15 Temperature Source Tympanic 06/20/18 07:15 Pulse 55 L 06/20/18 07:15 Pulse Rhythm Regular 06/20/18 08:29 Respiratory Rate 20 06/20/18 07:15 Respiratory Effort Non-Labored 06/20/18 08:29 Respiratory Depth Normal 06/20/18 08:29 Respiratory Pattern Normal 06/20/18 08:29 Blood Pressure 129/69 06/20/18 07:15 Blood Pressure Position Sitting 06/18/18 18:33 Pulse Oximetry 95 06/20/18 07:15 Oxygen Delivery Method Room Air 06/20/18 07:15 Oxygen Flow Rate 0 06/20/18 07:15 Pain Level 0 06/20/18 07:15 Intake & Output 06/19/18 06/20/18 06/20/18 23:59 11:59 23:59 Intake Total 730 / 730 290 / 290 Balance 730 / 730 290 / 290 Weight 118.1 kg Intake: IV 120 / 120 50 / 50 Oral 610 / 610 240 / 240 Other: Comment Pt voids independently. States has voided this shift, denies abnormality or problem Laboratory Results WBC 10.60 k/cumm (4.4-10.8) 06/20/18 06:40 RBC 4.34 m/cumm (4.50-6.00) L 06/20/18 06:40 Hgb 12.5 g/dL (13.5-17.5) L 06/20/18 06:40 Hct 38.0 % (40.0-50.0) L 06/20/18 06:40 MCV 87.6 fL (80-95) 06/20/18 06:40 MCH 28.8 pg (27.0-33.0) 06/20/18 06:40 MCHC 32.9 g/dL (32.0-36.0) 06/20/18 06:40 RDW 12.9 % (11.8-14.1) 06/20/18 06:40 Plt Count 304 x1000/uL (130-400) 06/20/18 06:40 MPV 10.8 fL (8.0-11.0) 06/20/18 06:40 Immature Gran % 0.3 06/20/18 06:40 Neutrophils % 55.7 10/30/18 06:40 Lymphocytes % 31.2 06/20/18 06:40 Monocytes % 8.3 06/20/18 06:40 Eosinophils % 4.2 06/20/18 06:40 Basophils % 0.3 06/20/18 06:40 Absolute Neutrophils 5.91 k/cumm (1.2-6.7) 06/20/18 06:40 Band Neutrophils 3.0 % 06/18/18 19:20 Absolute Lymphocytes 3.31 k/cumm (1.2-3.4) 06/20/18 06:40 Absolute Monocytes 0.88 k/cumm (0.11-0.7) H 06/20/18 06:40 Absolute Eosinophils 0.44 k/cumm (0.0-0.7) 06/20/18 06:40 Absolute Basophils 0.03 k/cumm (0.0-0.2) 06/20/18 06:40 Differential Comment Agrees w/ instrument 06/19/18 07:09 Atypical Lymphocytes 3 06/18/18 19:20 RBC Morphology Normal 06/19/18 07:09 ESR 44 MM/HR (0-15) H 06/18/18 19:20 Sodium 139 mmol/L (136-145) 06/20/18 06:40 Potassium 3.4 mmol/L (3.5-5.1) L 06/20/18 06:40 Chloride 103 mmol/L (98-107) 06/20/18 06:40 Carbon Dioxide 28.8 mmol/L (21.0-32.0) 06/20/18 06:40 Anion Gap 7.2 mmol/L (3-11) 06/20/18 06:40 BUN 6 mg/dL (7-18) L 06/20/18 06:40 Creatinine 0.80 mg/dL (0.70-1.30) 06/20/18 06:40 Estimated GFR/1.73 m2 >= 60.00 (mL/min/1.73m2) 06/20/18 06:40 Glucose 94 mg/dL (70-100) 06/20/18 06:40 Lactate 1.4 mmol/L (0.6-1.4) 06/18/18 19:20 Calcium 9.1 mg/dL (8.5-10.1) 06/20/18 06:40 Total Bilirubin 1.0 mg/dL (0.2-1.0) 06/18/18 19:20 AST 18 U/L (15-37) 06/18/18 19:20 ALT 33 U/L (12-78) 06/18/18 19:20 Alkaline Phosphatase 80 U/L (46-116) 06/18/18 19:20 C-Reactive Protein 3.29 mg/dL (0.0-0.3) H 06/20/18 06:40 Total Protein 8.3 g/dL (6.4-8.2) H 06/18/18 19:20 Albumin 3.6 g/dL (3.4-5.0) 06/18/18 19:20
--- NOTE | 2018-06-20 14:16 | PDOC.CMPRO ---
Care Management Progress Note S/O: CM met with Papito who reported struggling to sleep last evening and feeling he was out of sync as he had napped yesterday. Papito is wanting to return home upon discharge; CM continues to encourage Papito to coordinate inpatient rehabilitation. CM discussed community based therapies as well and provided resources for outreach. CM called [facility] and coordinated weekend transport for Papito, the coal trimmer machine operator reported Papito should call the office on Tuesday to confirm pick-up time for Tuesday. CM provided new bus route and p#[phone]) as coal trimmer machine operator reported times change daily-CM encouraged Papito to call Tuesday and Tuesday to confirm warehouse order picker times for the following day. CM requested MD transfer Papito to inpatient level of care as he is requiring IV ABX and withdrawal monitoring and has met his 48 hour observation window; MD was in agreement. A: 28 year old male admitted to [facility] 06/18/18 for Cellulitis with Abscess P: Papito will return home when ready per MD. CM continues encouraged Papito to seek treatment and offered support to do so. He will follow up with his PCP and plan of care as prescribed. He will transport via private vehicle with family or a friend.
--- NOTE | 2018-06-20 15:15 | CMPROGNOTE_ITS ---
Care Management Progress Note S/O: CM met with Papito who reported struggling to sleep last evening and feeling he was out of sync as he had napped yesterday. Papito is wanting to return home upon discharge; CM continues to encourage Papito to coordinate inpatient rehabilitation. CM discussed community based therapies as well and provided resources for outreach. CM called [facility] and coordinated weekend transport for Papito, the loom changeover operator reported Papito should call the office on Tuesday to confirm pick-up time for Tuesday. CM provided new bus route and p#[phone]) as loom changeover operator reported times change daily-CM encouraged Papito to call Tuesday and Tuesday to confirm parts picker times for the following day. CM requested MD transfer Papito to inpatient level of care as he is requiring IV ABX and withdrawal monitoring and has met his 48 hour observation window; MD was in agreement. A: 28 year old male admitted to [facility] 06/18/18 for Cellulitis with Abscess P: Papito will return home when ready per MD. CM continues encouraged Papito to seek treatment and offered support to do so. He will follow up with his PCP and plan of care as prescribed. He will transport via private vehicle with family or a friend.
--- NOTE | 2018-06-20 15:17 | PGE_ITS ---
Documented by User: JOAN Matos 06/20/18 15:17 Assessment and Plan (1) Cellulitis of left arm: Current visit: Yes Status: Acute A// Left forearm cellulitis. Induration, swelling and erythema of the left antecubital space and forearm this has regressed compared to yesterday and is more centralized to the antecubital space. Drainage continues of watery white /yellow colored fluid. CT scan did not show an abscess. No fluid collection appreciated on exam. There are currently no indications for I&D. P// No indications for I&D Continue IV Antibiotics for Cellulitis of left forearm Subjective Patient reports: feels better Interval history since last seen: Patient reports that he is having less pain today in his forearm, but states that the open area has been draining fluid over night and this morning. He has continued to use warm compresses and feels this has also provided symptomatic relief. Exam Const General: cooperative and comfortable Orientation: alert and oriented x3 Resp Effort & Inspection: normal respiratory effort, no audible wheezes and no cough Skin Other: Left forearm- Swelling throughout the forearm. Erythema has regressed and is more centralized to the antecubital space. There is a small opening that is surrounded by indurated tissue and is draining watery, white/yellow colored fluid. Discomfort increases with elbow extension. Objective Objective Clinical Data: Abnormal lab results 06/20/18 06/20/18 Range/Units 06:40 06:40 RBC 4.34 L (4.50-6.00) m/cumm Hgb 12.5 L (13.5-17.5) g/dL Hct 38.0 L (40.0-50.0) % Absolute Monocytes 0.88 H (0.11-0.7) k/cumm Potassium 3.4 L (3.5-5.1) mmol/L BUN 6 L (7-18) mg/dL C-Reactive Protein 3.29 H (0.0-0.3) mg/dL Vital Signs Temperature 36.3 C L 06/20/18 07:15 Temperature Source Tympanic 06/20/18 07:15 Pulse 55 L 06/20/18 07:15 Pulse Rhythm Regular 06/20/18 08:29 Respiratory Rate 20 06/20/18 07:15 Respiratory Effort Non-Labored 06/20/18 08:29 Respiratory Depth Normal 06/20/18 08:29 Respiratory Pattern Normal 06/20/18 08:29 Blood Pressure 129/69 06/20/18 07:15 Blood Pressure Position Sitting 06/18/18 18:33 Pulse Oximetry 95 06/20/18 07:15 Oxygen Delivery Method Room Air 06/20/18 07:15 Oxygen Flow Rate 0 06/20/18 07:15 Pain Level 0 06/20/18 07:15 Intake & Output 06/19/18 06/20/18 06/20/18 23:59 11:59 23:59 Intake Total 730 / 730 290 / 290 Balance 730 / 730 290 / 290 Weight 118.1 kg Intake: IV 120 / 120 50 / 50 Oral 610 / 610 240 / 240 Other: Comment Pt voids independently. States has voided this shift, denies abnormality or problem Laboratory Results WBC 10.60 k/cumm (4.4-10.8) 06/20/18 06:40 RBC 4.34 m/cumm (4.50-6.00) L 06/20/18 06:40 Hgb 12.5 g/dL (13.5-17.5) L 06/20/18 06:40 Hct 38.0 % (40.0-50.0) L 06/20/18 06:40 MCV 87.6 fL (80-95) 06/20/18 06:40 MCH 28.8 pg (27.0-33.0) 06/20/18 06:40 MCHC 32.9 g/dL (32.0-36.0) 06/20/18 06:40 RDW 12.9 % (11.8-14.1) 06/20/18 06:40 Plt Count 304 x1000/uL (130-400) 06/20/18 06:40 MPV 10.8 fL (8.0-11.0) 06/20/18 06:40 Immature Gran % 0.3 06/20/18 06:40 Neutrophils % 55.7 06/20/18 06:40 Lymphocytes % 31.2 06/20/18 06:40 Monocytes % 8.3 06/20/18 06:40 Eosinophils % 4.2 06/20/18 06:40 Basophils % 0.3 06/20/18 06:40 Absolute Neutrophils 5.91 k/cumm (1.2-6.7) 06/20/18 06:40 Band Neutrophils 3.0 % 06/18/18 19:20 Absolute Lymphocytes 3.31 k/cumm (1.2-3.4) 06/20/18 06:40 Absolute Monocytes 0.88 k/cumm (0.11-0.7) H 06/20/18 06:40 Absolute Eosinophils 0.44 k/cumm (0.0-0.7) 06/20/18 06:40 Absolute Basophils 0.03 k/cumm (0.0-0.2) 06/20/18 06:40 Differential Comment Agrees w/ instrument 06/19/18 07:09 Atypical Lymphocytes 3 06/18/18 19:20 RBC Morphology Normal 06/19/18 07:09 ESR 44 MM/HR (0-15) H 06/18/18 19:20 Sodium 139 mmol/L (136-145) 06/20/18 06:40 Potassium 3.4 mmol/L (3.5-5.1) L 06/20/18 06:40 Chloride 103 mmol/L (98-107) 06/20/18 06:40 Carbon Dioxide 28.8 mmol/L (21.0-32.0) 06/20/18 06:40 Anion Gap 7.2 mmol/L (3-11) 06/20/18 06:40 BUN 6 mg/dL (7-18) L 06/20/18 06:40 Creatinine 0.80 mg/dL (0.70-1.30) 06/20/18 06:40 Estimated GFR/1.73 m2 >= 60.00 (mL/min/1.73m2) 06/20/18 06:40 Glucose 94 mg/dL (70-100) 06/20/18 06:40 Lactate 1.4 mmol/L (0.6-1.4) 06/18/18 19:20 Calcium 9.1 mg/dL (8.5-10.1) 06/20/18 06:40 Total Bilirubin 1.0 mg/dL (0.2-1.0) 06/18/18 19:20 AST 18 U/L (15-37) 06/18/18 19:20 ALT 33 U/L (12-78) 06/18/18 19:20 Alkaline Phosphatase 80 U/L (46-116) 06/18/18 19:20 C-Reactive Protein 3.29 mg/dL (0.0-0.3) H 06/20/18 06:40 Total Protein 8.3 g/dL (6.4-8.2) H 06/18/18 19:20 Albumin 3.6 g/dL (3.4-5.0) 06/18/18 19:20
[2018-06-20 16:02] VITALS: BP 109/66; PULSE 49; RESP 12; TEMP 35.9; O2SAT 97
[2018-06-20] MEDS: Potassium Chloride 20 MEQ TABCR PO (16:52)
[2018-06-20] MEDS: Enoxaparin 40 MG/0.4 ML SYR SC (16:52)
[2018-06-21 01:26] VITALS: BP 122/68; PULSE 47; RESP 18; TEMP 36; O2SAT 96
[2018-06-21] MEDS: CLINDAMYCIN 900 MG/50 ML BAG 50 MG IVPB ×2 (03:56→10:08)
[2018-06-21] MEDS: Normal Saline Flush 10 ML SYR IVP ×3 (03:56→17:23)
[2018-06-21 07:20] VITALS: BP 109/69; PULSE 50; RESP 17; TEMP 36.1; O2SAT 99
[2018-06-21 07:22] LABS: Abs Immature Grans 0.02 k/cumm (0.0-0.09); Absolute Basophil Count 0.05 k/cumm (0.0-0.2); Absolute Eosinophil Count 0.56 k/cumm (0.0-0.7); Absolute Lymphocyte Count 4.11 k/cumm (1.2-3.4); Absolute Neutrophil Count 5.19 k/cumm (1.2-6.7); Basophils % 0.5; Eosinophils % 5.2; HCT 37.4 % (40.0-50.0); HGB 12.3 g/dL (13.5-17.5); Immature Grans % 0.2; Lymphocytes % 38.3; Mean Corp. HGB Concentration 32.9 g/dL (32.0-36.0); Mean Corpuscular Volume 88.2 fL (80-95); Mean Platelet Volume 10.7 fL (8.0-11.0); Monocytes % 7.5; Neutrophils % 48.3; Platelet Count 308 x1000/uL (130-400); RBC 4.24 m/cumm (4.50-6.00); RBC Distribution Width 12.9 % (11.8-14.1); White Blood Cell Count 10.73 k/cumm (4.4-10.8)
[2018-06-21 08:26] LABS: Anion Gap 8.2 mmol/L (3-11); BUN 6 mg/dL (7-18); CO2 27.8 mmol/L (21.0-32.0); CREATININE 0.87 mg/dL (0.70-1.30); Calcium 9.3 mg/dL (8.5-10.1); Chloride 104 mmol/L (98-107); Glucose 83 mg/dL (70-100); Potassium 3.8 mmol/L (3.5-5.1); Sodium 140 mmol/L (136-145)
[2018-06-21] MEDS: Pantoprazole 40 MG TABCR PO (10:09)
[2018-06-21] MEDS: Methadone 10 MG TAB 45 MG PO (10:10)
[2018-06-21] MEDS: Normal Saline 500 ML 50 ML IV (10:13)
--- NOTE | 2018-06-21 14:36 | PDOC.CMPRO ---
Care Management Progress Note S/O: Papito was dozing when CM attempted to meet with him. He woke easily and reported he was alert enough to engage with this chart writer. CM reviewed discharge considerations, appointments and new referrals of which Papito was agreeable. He reported choosing to return at this time though this chart writer continues to offer inpatient substance abuse facilitation upon discharge as an alternative. A: 28 year old male admitted to [facility] 06/18/18 for Cellulitis with Abscess P: Papito will return home when ready per MD. CM continues to encourage Papito to seek treatment and offered support to do so. He will follow up with his PCP and plan of care as prescribed. He will call [facility] on 06/23/18 to confirm transport times to [facility] over the weekend. He will attend intake for services including IOP at [facility] on 06/28/18@0930. CM faxed information requested by intake personnel Birgit to #[phone]-Birgit also requested discharge summary once available. CM will connect with [facility] and confirm follow up services. Papito will transport via private vehicle with a friend or via [facility].
--- NOTE | 2018-06-21 14:41 | CMPROGNOTE_ITS ---
Care Management Progress Note S/O: Papito was dozing when CM attempted to meet with him. He woke easily and reported he was alert enough to engage with this newspaper writer. CM reviewed discharge considerations, appointments and new referrals of which Papito was agreeable. He reported choosing to return at this time though this newspaper writer continues to offer inpatient substance abuse facilitation upon discharge as an alternative. A: 28 year old male admitted to [facility] 06/18/18 for Cellulitis with Abscess P: Papito will return home when ready per MD. CM continues to encourage Papito to seek treatment and offered support to do so. He will follow up with his PCP and plan of care as prescribed. He will call [facility] on 06/23/18 to confirm transport times to [facility] over the weekend. He will attend intake for services including IOP at [facility] on 06/28/18@0930. CM faxed information requested by intake personnel Birgit to #[phone]-Birgit also requested discharge summary once available. CM will connect with [facility] and confirm follow up services. Papito will transport via private vehicle with a friend or via [facility].
--- NOTE | 2018-06-21 15:18 | PGE_ITS ---
Assessment and Plan (1) Cellulitis of left arm: Current visit: Yes Status: Acute Improving. He is afebrile. Blood cultures have yielded no growth at 48 hours, wound cultures are are growning MSSA. White blood cell count remains normal. Transition from IV clindamycin to oral. Continue to monitor cultures. Repeat lab work in the morning. (2) IV drug abuse: Current visit: Yes Status: Acute He was restarted on methadone after his dose was verified with [facility]. Is not experiencing any cravings or withdrawal symptoms. Continue methadone at current dose. (3) Discharge planning issues: Current visit: Yes Status: Acute At the present time he reports that he desires to abstain from IV drug use. Care management is working on a discharge plan with him. Consider rehab placement upon discharge versus outpatient intensive therapy. This case was discussed with Dr. Elder who is in agreement. (4) DVT prophylaxis: Current visit: Yes Status: Acute Lovenox for DVT prophylaxis. Subjective Interval history since last seen: Papito is a 28 yr old male IV drug abuser who uses heroin, and has recently been injecting ritalin into his left forearm who was admitted 06/18/18 with left upper extremity cellulitis. Workup in the ED showed a cellulitis of his left forearm/antecubital site and leukocytosis of 17 ,000 with elevated ESR of 44 and CRP of 8.81 without lactic acidosis and normal renal and liver function tests. CT of his left upper extremity with contrast was c/w cellulitis it showed edema of subcutaneous tissue and skin thickening around the elbow but no measurable fluid collections to suggest an abscess. Papito had a surgical consult, they did not currently recommend I&D as there was no evidence of a fluid collection. Today, his CRP is down to 1.2, his white blood cell count remains normal. He feels that the redness is markedly improved. The wound continues to drain clear yellow drainage. He is having less pain. He denies any symptoms of opioid withdrawal now that he is back on his usual methadone dose. He is eating and drinking without difficulty. He is not currently having cravings for IV drugs. He is interested in abstinence from IV drugs. We discussed inpatient rehab versus intensive outpatient therapy versus seeing a therapist in the community. He is reluctant to go to inpatient rehab at this time. Care management is providing him with resources as well. Exam Narrative Exam Narrative: General: Papito is a well developed 28 year old male, he is awake , alert and oriented. He is pleasant and cooperative. HEENT: Normocephalic, atraumatic. Pupils equal and round. Mucous membranes moist, teeth with caries. Neck: Supple, no JVD. Respiratory: Respirations even and unlabored, lung sounds clear to auscultation throughout. Cardiovascular: Heart has a regular rate and rhythm with normal S1 and S2. No murmur, click, gallop or rub. GI: Normoactive bowel sounds, soft, nontender on palpation, no masses appreciated. Skin: Left upper extremity with erythema now centralized to an area of induration at the left antecubital fossa with a central pinpoint opening with thin, clear yellow drainage. Minimal drainage is expressed from the site. The erythema has receded from the previously outlined area. Extremities: Left upper extremity as above, with mild swelling and warmth. Radial pulses present and palpable. Bilateral lower extremities without clubbing cyanosis or edema. Pedal pulses intact bilaterally. No calf tenderness or swelling. Objective Objective Clinical Data: Abnormal lab results 06/21/18 06/21/18 Range/Units 06:25 06:25 RBC 4.24 L (4.50-6.00) m/cumm Hgb 12.3 L (13.5-17.5) g/dL Hct 37.4 L (40.0-50.0) % Absolute Lymphocytes 4.11 H (1.2-3.4) k/cumm Absolute Monocytes 0.80 H (0.11-0.7) k/cumm BUN 6 L (7-18) mg/dL C-Reactive Protein 1.20 H (0.0-0.3) mg/dL Vital Signs Temperature 36.1 C L 06/21/18 07:20 Temperature Source Tympanic 06/21/18 07:20 Pulse 50 L 06/21/18 07:20 Pulse Rhythm Regular 06/21/18 08:02 Respiratory Rate 17 06/21/18 07:20 Respiratory Effort Non-Labored 06/21/18 08:02 Respiratory Depth Normal 06/21/18 08:02 Respiratory Pattern Normal 06/21/18 08:02 Blood Pressure 109/69 06/21/18 07:20 Blood Pressure Position Sitting 06/18/18 18:33 Pulse Oximetry 99 06/21/18 07:20 Oxygen Delivery Method Room Air 06/21/18 07:20 Oxygen Flow Rate 0 06/21/18 07:20 Pain Level 1 06/21/18 10:10 Comment 06/20/18 16:02 Intake & Output 06/20/18 06/21/18 06/21/18 23:59 11:59 23:59 Intake Total 700 / 700 246.667 / 246.667 Balance 700 / 700 246.667 / 246.667 Intake: IV 100 / 100 126.667 / 126.667 Oral 600 / 600 120 / 120 Other: Urine Appearance Clear Comment Voiding independently in bathroom Laboratory Results WBC 10.73 k/cumm (4.4-10.8) 06/21/18 06:25 RBC 4.24 m/cumm (4.50-6.00) L 06/21/18 06:25 Hgb 12.3 g/dL (13.5-17.5) L 06/21/18 06:25 Hct 37.4 % (40.0-50.0) L 06/21/18 06:25 MCV 88.2 fL (80-95) 06/21/18 06:25 MCH 29.0 pg (27.0-33.0) 06/21/18 06:25 MCHC 32.9 g/dL (32.0-36.0) 06/21/18 06:25 RDW 12.9 % (11.8-14.1) 06/21/18 06:25 Plt Count 308 x1000/uL (130-400) 06/21/18 06:25 MPV 10.7 fL (8.0-11.0) 06/21/18 06:25 Immature Gran % 0.2 06/21/18 06:25 Neutrophils % 48.3 06/21/18 06:25 Lymphocytes % 38.3 06/21/18 06:25 Monocytes % 7.5 06/21/18 06:25 Eosinophils % 5.2 06/21/18 06:25 Basophils % 0.5 06/21/18 06:25 Absolute Neutrophils 5.19 k/cumm (1.2-6.7) 06/21/18 06:25 Band Neutrophils 3.0 % 06/18/18 19:20 Absolute Lymphocytes 4.11 k/cumm (1.2-3.4) H 06/21/18 06:25 Absolute Monocytes 0.80 k/cumm (0.11-0.7) H 06/21/18 06:25 Absolute Eosinophils 0.56 k/cumm (0.0-0.7) 06/21/18 06:25 Absolute Basophils 0.05 k/cumm (0.0-0.2) 06/21/18 06:25 Differential Comment Agrees w/ instrument 06/19/18 07:09 Atypical Lymphocytes 3 06/18/18 19:20 RBC Morphology Normal 06/19/18 07:09 ESR 44 MM/HR (0-15) H 06/18/18 19:20 Sodium 140 mmol/L (136-145) 06/21/18 06:25 Potassium 3.8 mmol/L (3.5-5.1) 06/21/18 06:25 Chloride 104 mmol/L (98-107) 06/21/18 06:25 Carbon Dioxide 27.8 mmol/L (21.0-32.0) 06/21/18 06:25 Anion Gap 8.2 mmol/L (3-11) 06/21/18 06:25 BUN 6 mg/dL (7-18) L 06/21/18 06:25 Creatinine 0.87 mg/dL (0.70-1.30) 06/21/18 06:25 Estimated GFR/1.73 m2 >= 60.00 (mL/min/1.73m2) 06/21/18 06:25 Glucose 83 mg/dL (70-100) 06/21/18 06:25 Lactate 1.4 mmol/L (0.6-1.4) 06/18/18 19:20 Calcium 9.3 mg/dL (8.5-10.1) 06/21/18 06:25 Magnesium 2.0 mg/dL (1.8-2.4) 06/21/18 06:25 Total Bilirubin 1.0 mg/dL (0.2-1.0) 06/18/18 19:20 AST 18 U/L (15-37) 06/18/18 19:20 ALT 33 U/L (12-78) 06/18/18 19:20 Alkaline Phosphatase 80 U/L (46-116) 06/18/18 19:20 C-Reactive Protein 1.20 mg/dL (0.0-0.3) H 06/21/18 06:25 Total Protein 8.3 g/dL (6.4-8.2) H 06/18/18 19:20 Albumin 3.6 g/dL (3.4-5.0) 06/18/18 19:20
[2018-06-21 15:55] VITALS: BP 115/63; PULSE 48; RESP 18; TEMP 36.1; O2SAT 98
[2018-06-21] MEDS: Clindamycin 300 MG CAP 600 MG PO ×2 (17:23→23:52)
[2018-06-21] MEDS: Enoxaparin 40 MG/0.4 ML SYR SC (17:23)
--- NOTE | 2018-06-21 18:12 | W.PM.PROGNOT ---
Assessment and Plan (1) Cellulitis of left arm: Current visit: Yes Status: Acute Cellulitis resolving on abx therapy, no surgical interventions indicated Subjective Patient reports: no new complaints Exam Const General: no acute distress Orientation: alert, awake and oriented x3 Extrem General: normal capillary refill Left upper extremity: normal capillary refill and shoulder/upper arm (Erythema resolved) Details: tenderness (minimal) Objective Objective Clinical Data: Abnormal lab results 06/21/18 06/21/18 Range/Units 06:25 06:25 RBC 4.24 L (4.50-6.00) m/cumm Hgb 12.3 L (13.5-17.5) g/dL Hct 37.4 L (40.0-50.0) % Absolute Lymphocytes 4.11 H (1.2-3.4) k/cumm Absolute Monocytes 0.80 H (0.11-0.7) k/cumm BUN 6 L (7-18) mg/dL C-Reactive Protein 1.20 H (0.0-0.3) mg/dL Vital Signs Temperature 36.1 C L 06/21/18 07:20 Temperature Source Tympanic 06/21/18 07:20 Pulse 50 L 06/21/18 07:20 Pulse Rhythm Regular 06/21/18 16:03 Respiratory Rate 17 06/21/18 07:20 Respiratory Effort Non-Labored 06/21/18 16:03 Respiratory Depth Normal 06/21/18 16:03 Respiratory Pattern Normal 06/21/18 16:03 Blood Pressure 109/69 06/21/18 07:20 Blood Pressure Position Sitting 06/18/18 18:33 Pulse Oximetry 99 06/21/18 07:20 Oxygen Delivery Method Room Air 06/21/18 07:20 Oxygen Flow Rate 0 06/21/18 07:20 Pain Level 1 06/21/18 10:10 Comment 06/20/18 16:02 Intake & Output 06/20/18 06/21/18 06/21/18 18:59 06:59 18:59 Intake Total 700 / 700 340 / 340 796.667 / 796.667 Balance 700 / 700 340 / 340 796.667 / 796.667 Intake: IV 100 / 100 100 / 100 76.667 / 76.667 Oral 600 / 600 240 / 240 720 / 720 Other: Urine Appearance Clear Clear Comment pt up independantly to void, pt states no issues Voiding independently in bathroom Laboratory Results WBC 10.73 k/cumm (4.4-10.8) 06/21/18 06:25 RBC 4.24 m/cumm (4.50-6.00) L 06/21/18 06:25 Hgb 12.3 g/dL (13.5-17.5) L 06/21/18 06:25 Hct 37.4 % (40.0-50.0) L 06/21/18 06:25 MCV 88.2 fL (80-95) 06/21/18 06:25 MCH 29.0 pg (27.0-33.0) 06/21/18 06:25 MCHC 32.9 g/dL (32.0-36.0) 06/21/18 06:25 RDW 12.9 % (11.8-14.1) 06/21/18 06:25 Plt Count 308 x1000/uL (130-400) 06/21/18 06:25 MPV 10.7 fL (8.0-11.0) 06/21/18 06:25 Immature Gran % 0.2 06/21/18 06:25 Neutrophils % 48.3 06/21/18 06:25 Lymphocytes % 38.3 06/21/18 06:25 Monocytes % 7.5 06/21/18 06:25 Eosinophils % 5.2 06/21/18 06:25 Basophils % 0.5 06/21/18 06:25 Absolute Neutrophils 5.19 k/cumm (1.2-6.7) 06/21/18 06:25 Band Neutrophils 3.0 % 06/18/18 19:20 Absolute Lymphocytes 4.11 k/cumm (1.2-3.4) H 06/21/18 06:25 Absolute Monocytes 0.80 k/cumm (0.11-0.7) H 06/21/18 06:25 Absolute Eosinophils 0.56 k/cumm (0.0-0.7) 06/21/18 06:25 Absolute Basophils 0.05 k/cumm (0.0-0.2) 06/21/18 06:25 Differential Comment Agrees w/ instrument 06/19/18 07:09 Atypical Lymphocytes 3 06/18/18 19:20 RBC Morphology Normal 06/19/18 07:09 ESR 44 MM/HR (0-15) H 06/18/18 19:20 Sodium 140 mmol/L (136-145) 06/21/18 06:25 Potassium 3.8 mmol/L (3.5-5.1) 06/21/18 06:25 Chloride 104 mmol/L (98-107) 06/21/18 06:25 Carbon Dioxide 27.8 mmol/L (21.0-32.0) 06/21/18 06:25 Anion Gap 8.2 mmol/L (3-11) 06/21/18 06:25 BUN 6 mg/dL (7-18) L 06/21/18 06:25 Creatinine 0.87 mg/dL (0.70-1.30) 06/21/18 06:25 Estimated GFR/1.73 m2 >= 60.00 (mL/min/1.73m2) 06/21/18 06:25 Glucose 83 mg/dL (70-100) 06/21/18 06:25 Lactate 1.4 mmol/L (0.6-1.4) 06/18/18 19:20 Calcium 9.3 mg/dL (8.5-10.1) 06/21/18 06:25 Magnesium 2.0 mg/dL (1.8-2.4) 06/21/18 06:25 Total Bilirubin 1.0 mg/dL (0.2-1.0) 06/18/18 19:20 AST 18 U/L (15-37) 06/18/18 19:20 ALT 33 U/L (12-78) 06/18/18 19:20 Alkaline Phosphatase 80 U/L (46-116) 06/18/18 19:20 C-Reactive Protein 1.20 mg/dL (0.0-0.3) H 06/21/18 06:25 Total Protein 8.3 g/dL (6.4-8.2) H 06/18/18 19:20 Albumin 3.6 g/dL (3.4-5.0) 06/18/18 19:20
[2018-06-21] MEDS: Lactobacillus Acidophilus CAP 1 CAP PO (19:41)
[2018-06-21 23:27] VITALS: BP 92/55; PULSE 51; RESP 18; TEMP 36.4; O2SAT 94
[2018-06-22 07:15] VITALS: BP 136/72; PULSE 51; RESP 18; TEMP 36.1; O2SAT 98
[2018-06-22 07:45] LABS: Abs Immature Grans 0.02 k/cumm (0.0-0.09); Absolute Basophil Count 0.04 k/cumm (0.0-0.2); Absolute Eosinophil Count 0.42 k/cumm (0.0-0.7); Absolute Lymphocyte Count 3.94 k/cumm (1.2-3.4); Absolute Monocyte Count 0.74 k/cumm (0.11-0.7); Absolute Neutrophil Count 5.46 k/cumm (1.2-6.7); Basophils % 0.4; HGB 14.2 g/dL (13.5-17.5); Immature Grans % 0.2; Lymphocytes % 37.1; Mean Corpuscular Hemoglobin 28.8 pg (27.0-33.0); Mean Corpuscular Volume 87.2 fL (80-95); Mean Platelet Volume 10.3 fL (8.0-11.0); Neutrophils % 51.3; Platelet Count 371 x1000/uL (130-400); RBC 4.93 m/cumm (4.50-6.00); RBC Distribution Width 13.1 % (11.8-14.1); White Blood Cell Count 10.62 k/cumm (4.4-10.8)
[2018-06-22 08:06] LABS: Anion Gap 6.7 mmol/L (3-11); BUN 6 mg/dL (7-18); C-Reactive Protein 0.51 mg/dL (0.0-0.3); CO2 30.3 mmol/L (21.0-32.0); CREATININE 0.98 mg/dL (0.70-1.30); Chloride 101 mmol/L (98-107); Glucose 92 mg/dL (70-100); Magnesium 2.1 mg/dL (1.8-2.4); Potassium 4.2 mmol/L (3.5-5.1); Sodium 138 mmol/L (136-145)
[2018-06-22] MEDS: Lactobacillus Acidophilus CAP 1 CAP PO ×2 (09:09→14:46)
[2018-06-22] MEDS: Clindamycin 300 MG CAP 600 MG PO (09:09)
[2018-06-22] MEDS: Pantoprazole 40 MG TABCR PO (09:09)
[2018-06-22] MEDS: Methadone 10 MG TAB 45 MG PO (09:10)
--- NOTE | 2018-06-22 13:06 | DSE_ITS ---
Date of service: 06/22/18 Time of Service: 13:04 DS: Diagnosis Discharge Diagnosis (1) Cellulitis of left arm: Status: Acute Discharge Plan Disposition Patient Disposition: HOME Condition: Improving Discharge Details Reason For Visit: CELLULITIS WITH ABSCESS Admit Date/Time: 06/20/18 19:37 Admit Provider: Rc Ordaz Attending Provider: Rc Ordaz Primary Care Provider: Norberto Kern [facility] Course Hospital Course: Papito is a 28 yr old male IV drug abuser who uses heroin, and has recently been injecting ritalin into his left forearm who was admitted 06/18/18 with left upper extremity cellulitis. Workup in the ED showed a cellulitis of his left forearm/antecubital site and leukocytosis of 17,000 with elevated ESR of 44 and CRP of 8.81 without lactic acidosis and normal renal and liver function tests. CT of his left upper extremity with contrast was consistent with cellulitis it showed edema of subcutaneous tissue and skin thickening around the elbow but no measurable fluid collections to suggest an abscess. Papito had a surgical consult , General Surgery did not recommend I&D as there was no evidence of a fluid collection. He was admitted to the Med/Surg floor. He was treated with IV Clindamycin. His white blood cell count improved over the following days. His CRP was down to 0.51 by the time of his discharge. His blood cultures remained without growth at 72 hours. Wound cultures were obtained and grew MSSA. He remained afebrile. His cellulitis improved. He was transitioned to oral Clindamycin and monitored overnight. He remained afebrile. His white blood cell count remained normal. He continues to have an area of induration without fluctuance that is localized around the injection site. The site is draining clear yellow fluid, no purulence. Attempts were made to express drainage without success. He is eager for discharge. He has verbalized a desire to abstain from using IV drugs. He was encouraged to attend drug rehab upon discharge from the hospital but he feels motivated to stop using drugs and is willing to attend intensive outpatient treatment and he is scheduled to follow up with this on 06/28/18 at 0930. He has been maintained on Methadone 45 mg/day. He will follow up with [facility] to continue methadone as an outpatient. He has been provided with a last dose letter. He will follow up with his PCP as well as the Behavior Health Specialist at his PCP office. Home Meds and New Rx's Prescriptions: New clindamycin HCl 300 mg Capsule 600 mg PO Q8H Qty: 31 RF: 0 methadone [Dolophine] 10 mg Tablet 45 mg PO DAILY Qty: 0 RF: 0 acidophilus-pectin, citrus 25 million cell -100 mg Tablet 1 cap PO TID Qty: 30 RF: 0 Continue pantoprazole [Protonix] 40 MG tablet,delayed release (DR/EC) 40 mg PO DAILY Qty: 90 RF: 3 clonazepam [Klonopin] 1 mg tablet 1 mg PO BID Qty: 60 RF: 2 methylphenidate HCl [Ritalin] 20 mg tablet 20 mg PO BID MDD 40 mg Qty: 60 RF: 0 albuterol sulfate [ProAir HFA] 8.5 GM HFA aerosol inhaler 2 puff Inhalation Q4H PRN PRN (Reason: Shortness Of Breath) Qty: 1 RF: 0 acetaminophen [Mapap Extra Strength] 500 MG tablet 2 ea PO PRN PRNRF: 0 Discharge Instructions Instructions: Cellulitis (DC) Additional Instructions: Take all of your antibiotics as directed until they are gone. Take your other medications only as prescribed. You may apply a gauze dressing for the drainage. Continue to apply heat for comfort. Follow up with IOP. Do not use. Follow up with your PCP as scheduled. Follow up with the behavioral health specialist at your PCP office. Take care and good luck! Stand Alone Forms: Nursing Discharge Form Referrals: Kang Gonzalez LICSW [[facility]] - 07/12/18 9:40 am Norberto Kern MD [Primary Care Provider] - 06/27/18 10:00 am Activity:: Activity as Tolerated Equipment/Supplies:: No Equipment Needed Diet:: As Tolerated Discharge Orders Discharge Orders: Discharge Order (Routine); Ordered 06/22/18 Ordered By: Cristel Bajwa Exam Narrative Exam Narrative: General: Papito is a well developed 28 year old male, he is awake , alert and oriented. He is pleasant and cooperative. HEENT: Normocephalic, atraumatic. Pupils equal and round. Mucous membranes moist, teeth with caries. Neck: Supple, no JVD. Respiratory: Respirations even and unlabored, lung sounds clear to auscultation throughout. Cardiovascular: Heart has a regular rate and rhythm with normal S1 and S2. No murmur, click, gallop or rub. GI: Normoactive bowel sounds, soft, nontender on palpation, no masses appreciated. Skin: Left upper extremity with erythema now centralized to an area of induration at the left antecubital fossa with a central pinpoint opening with thin, clear yellow drainage. No fluctuance. Minimal drainage is expressed from the site. The erythema has receded from the previously outlined area. Extremities: Left upper extremity as above, with mild swelling and warmth. Radial pulses present and palpable. Bilateral lower extremities without clubbing cyanosis or edema. Pedal pulses intact bilaterally. No calf tenderness or swelling. DS: Data Vitals/I&O Vitals and I&O: Vital Signs Temperature 36.1 C L 06/22/18 07:15 Temperature Source Tympanic 06/22/18 07:15 Pulse 51 L 06/22/18 07:15 Pulse Rhythm Regular 06/21/18 23:28 Respiratory Rate 18 06/22/18 07:15 Respiratory Effort Non-Labored 06/21/18 23:28 Respiratory Depth Normal 06/21/18 23:28 Respiratory Pattern Normal 06/21/18 23:28 Blood Pressure 136/72 06/22/18 07:15 Blood Pressure Position Sitting 06/18/18 18:33 Pulse Oximetry 98 06/22/18 07:15 Oxygen Delivery Method Room Air 06/22/18 07:15 Oxygen Flow Rate 0 06/22/18 07:15 Pain Level 0 06/22/18 09:10 Comment 06/20/18 16:02 Intake & Output 06/21/18 06/22/18 06/22/18 23:59 11:59 23:59 Intake Total 650 / 650 500 / 500 Balance 650 / 650 500 / 500 Intake: IV 50 / 50 Oral 600 / 600 500 / 500 Other: Urine Color Yellow Urine Appearance Clear Urine Odor None Comment pt state he passed urine inside the bathroom same was normal Completed studies during hospitalization [Text1]: 06/18/18: CT SCAN OF THE LEFT UPPER EXTREMITY: CT scan of the left upper extremity was performed from the mid humerus to the mid forearm. The bones are intact. No lytic or sclerotic lesions are seen. No erosions or periostitis is seen to suggest acute osteomyelitis. There is artifact in the extremity due to the density of the contrast. No focal fluid collections are seen to suggest abscess. There is edema seen in the subcutaneous tissues about the elbow, suggestive of cellulitis. IMPRESSION: 1. Artifact in the upper extremity due to the contrast density. 2. Generalized edema in the subcutaneous tissues of the left upper extremity suggestive of cellulitis. No focal fluid collection is seen to suggest abscess. 3. No osseous findings to suggest acute osteomyelitis. Labs on day of discharge: Labs from last 24 hours 06/22/18 06/22/18 07:23 07:23 WBC 10.62 RBC 4.93 Hgb 14.2 Hct 43.0 MCV 87.2 MCH 28.8 MCHC 33.0 RDW 13.1 Plt Count 371 MPV 10.3 Immature Gran % 0.2 Neutrophils % 51.3 Lymphocytes % 37.1 Monocytes % 7.0 Eosinophils % 4.0 Basophils % 0.4 Absolute Neutrophils 5.46 Absolute Lymphocytes 3.94 H Absolute Monocytes 0.74 H Absolute Eosinophils 0.42 Absolute Basophils 0.04 Sodium 138 Potassium 4.2 Chloride 101 Carbon Dioxide 30.3 Anion Gap 6.7 BUN 6 L Creatinine 0.98 Estimated GFR/1.73 m2 >= 60.00 Glucose 92 Calcium 10.0 Magnesium 2.1 C-Reactive Protein 0.51 H Preliminary micro results at discharge 06/18/18 20:25 Blood Culture - Preliminary Blood NO GROWTH 72 HOURS 06/18/18 19:34 Blood Culture - Preliminary Blood NO GROWTH 72 HOURS
--- NOTE | 2018-06-22 13:49 | PDOC.CMDIS ---
- If Service Date Differs Date of service: 06/22/18 Time of Service: 13:49 LACE Index Scoring Tool - Questions: Length of Stay (in days): 3 Acuity (Admit via E.D.?): Yes E.D. Visits: 4 - Answers: Total Score: 10 Risk of Readmission: High Risk Care Management Discharge Reason for Hospitalization: Cellulitis with Abscess Discharge Plan: Papito will return home today. He will F/U with [facility] for IOP intake on 06/28/18 @ 9209, and he will contact [facility] tomorrow 06/23 to set up appointments for transportation to [facility]. CM provided last dose letter to Papito for [facility]. Patient/Family Education Needs: Review DC instructions, any limitations, and discuss 'Ask Me Three'.
--- NOTE | 2018-06-22 13:55 | CMDISCH_ITS ---
- If Service Date Differs Date of service: 06/22/18 Time of Service: 13:49 LACE Index Scoring Tool - Questions: Length of Stay (in days): 3 Acuity (Admit via E.D.?): Yes E.D. Visits: 4 - Answers: Total Score: 10 Risk of Readmission: High Risk Care Management Discharge Reason for Hospitalization: Cellulitis with Abscess Discharge Plan: Papito will return home today. He will F/U with [facility] for IOP intake on 06/28/18 @ 4302, and he will contact [facility] tomorrow 06/23 to set up appointments for transportation to [facility] CM provided last dose letter to Papito for [facility]. Patient/Family Education Needs: Review DC instructions, any limitations, and discuss 'Ask Me Three'.
== END 2018-06-22 14:55 | disposition home or self-care (01) | DRG 603 ==
LOC: ER 21:43 → MS 22:04
PROVIDERS: Admitting Provider Internal Medicine; Emergency Provider Nurse Practitioner Family; PCP Family Medicine; Visit Provider Internal Medicine
DX: L03.114 Cellulitis of left upper limb (principal); F11.20 Opioid dependence, uncomplicated; W46.0XXA Contact with hypodermic needle, initial encounter; Z63.72 Alcoholism and drug addiction in family; B95.61 Methicillin susceptible Staphylococcus aureus infection as the cause of diseases classified elsewhere
CPT/HCPCS: 36415; 80048; 80053; 85652; 87040; 87077; 96361; 96365; 96366; 99218; 99232; 99233; 99239; 99252; 99285; J1650; 73201; 83605; 83735; 85025; 86140; 87070; 87186; 87205; 99226; G0378; J3490

== ENCOUNTER 2018-08-07 02:40 | Outpatient (CLI) | payer MEDICARE, MEDICAID, SELFPAY | END 2018-08-07 03:00 | PROVIDERS: Visit Provider Nurse Practitioner Family | DX: F11.20 Opioid dependence, uncomplicated (principal); Z79.899 Other long term (current) drug therapy | CPT/HCPCS: 93005; 93010 ==

== ENCOUNTER 2022-04-05 21:14 | Emergency (ER) | payer OTHER, SELFPAY ==
[2022-04-05 21:21] VITALS: BP 155/54; PULSE 91; RESP 16; TEMP 36.4; O2SAT 95
--- NOTE | 2022-04-05 21:58 | ED.GENADUL_ITS ---
Discharge Plan Disposition Patient Disposition: HOME Condition: Improving Discharge Details Clinical Impression: Laceration of left upper arm Primary Care Provider: Unknown,Unknown ED Provider: Darin Greenfield Home Meds and New Rx's Prescriptions: No Action pantoprazole [Protonix] 40 MG tablet,delayed release (DR/EC) 40 mg PO DAILY Qty: 90 3RF clonazepam [Klonopin] 1 mg tablet 1 mg PO BID Qty: 60 2RF Rx Instructions: only to be filled monthly methylphenidate HCl [Ritalin] 20 mg tablet 20 mg PO BID MDD 40 mg Qty: 60 0RF albuterol sulfate [ProAir HFA] 8.5 GM HFA aerosol inhaler 2 puff Inhalation Q4H PRN PRN (Reason: Shortness Of Breath) Qty: 1 0RF acetaminophen [Mapap Extra Strength] 500 MG tablet 2 ea PO PRN PRN clindamycin HCl 300 mg Capsule 600 mg PO Q8H Qty: 31 0RF methadone [Dolophine] 10 mg Tablet 45 mg PO DAILY Qty: 0 0RF acidophilus-pectin, citrus 25 million cell -100 mg Tablet 1 cap PO TID Qty: 30 0RF Discharge Instructions Instructions: Laceration (ED) Additional Instructions: Watch for any signs of infection and return immediately to the emergency department if these occur. Otherwise keep dressing in place for the next 24-48 hours and then keep wound clean and dry. Return to the emergency department 10 days for suture removal. Stand Alone Forms: Work Release Referrals: Primary Care Provider [Outside] (As needed.) Discharge Data Discharge Date/Time-TO BE ENTERED AT DEPARTURE: 04/05/22 22:11 Medical Decision Making patient presenting to the emergency for chief complaint of laceration to the posterior left arm due to being pinched between 2 pieces of metal while at work. Patient denies any other injury or trauma. States only skin involvement. Has full range of motion sensation. Physical exam shows a 1.8 cm laceration to the posterior aspect of the left upper arm just superior to the elbow. Exam is otherwise unremarkable, no bony prominence tenderness and full range of motion. Tetanus was updated. Please see procedure note for repair. After discussion of diagnosis and plan of care patient has no further needs, questions, or concerns and states clear understanding to return to the emergency department for any worsening symptoms. This documentation was generated using [employer] system, please disregard any oddities of phrase or misspellings. HPI General Date/Time Provider Initiated Documentation: 04/05/22 21:22 . Limitations to Documentation: no limitations . Information obtained by: patient and RN notes reviewed . History of Present Illness 31 year old M presents to the emergency department with the chief comp laint of Left arm laceration , described as moderate, with intensity rated at 8. Quality is described as sharp, and is localized to the left and upper extremity. Patient reports no radiation. Patient started experiencing this hour(s) (1) and it has been constant. No relieving factors improve symptom(s), No exacerbating factors reported . Patient notes no other symptoms.. Patient did receive the following treatments prior to arrival, none Related Data Home Medications Medication Instructions Recorded Confirmed albuterol sulfate 90 mcg/actuation 2 puff inhalation Q4H PRN PRN 05/22/15 06/18/18 aerosol inhaler (ProAir HFA) Shortness Of Breath ##1 pantoprazole 40 mg tablet,delayed 40 mg PO DAILY #90 tab-caps 05/23/17 06/18/18 release (Protonix) acetaminophen 500 mg tablet (Mapap 2 ea PO PRN PRN 08/04/17 06/18/18 Extra Strength) clonazepam 1 mg tablet (Klonopin) 1 mg PO BID #60 tab-caps 06/13/18 06/18/18 methylphenidate HCl 20 mg tablet 20 mg PO BID #60 tab-caps 06/13/18 06/18/18 (Ritalin) acidophilus 25 million 1 cap PO TID #30 tabs 06/22/18 cell-pectin, citrus 100 mg tablet clindamycin HCl 300 mg capsule 600 mg PO Q8H #31 caps 06/22/18 methadone 10 mg tablet (Dolophine) 45 mg PO DAILY #0 tabs 06/22/18 Previous Rx's Medication Instructions Recorded albuterol sulfate 90 mcg/actuation 2 puff inhalation Q4H PRN PRN 05/22/15 aerosol inhaler (ProAir HFA) Shortness Of Breath ##1 pantoprazole 40 mg tablet,delayed 40 mg PO DAILY #90 tab-caps 05/23/17 release (Protonix) clonazepam 1 mg tablet (Klonopin) 1 mg PO BID #60 tab-caps 06/13/18 methylphenidate HCl 20 mg tablet 20 mg PO BID #60 tab-caps 06/13/18 (Ritalin) acidophilus 25 million 1 cap PO TID #30 tabs 06/22/18 cell-pectin, citrus 100 mg tablet clindamycin HCl 300 mg capsule 600 mg PO Q8H #31 caps 06/22/18 methadone 10 mg tablet (Dolophine) 45 mg PO DAILY #0 tabs 06/22/18 Allergies Allergy/AdvReac Type Severity Reaction Status Date / Time cephalexin Allergy Intermediate Rash Unverified 06/18/18 18:39 codeine AdvReac Mild GI Upset Unverified 06/18/18 18:39 in pill form only General Stated Complaint: Laceration JOANNA: 4 Review of Systems Narrative: 8 systems reviewed and unremarkable except what is marked below. Musculoskeletal Musculoskeletal: Denies arthralgias and Denies limited range of motion Integumentary/Breasts Skin/Breast: Reports as per HPI PFSH All Active Problems Laceration of left upper arm (Acute) IV drug abuse (Acute) DVT prophylaxis (Acute) Discharge planning issues (Acute) Cellulitis of left arm (Acute) Obesity (Chronic) Mild intermittent asthma without complication (Chronic 06/04/15) patient states has not had exacerbation in years Gastroesophageal reflux disease (Chronic) Attention deficit hyperactivity disorder, predominantly inattentive type (Chronic) Anxiety (Chronic 01/18/13) Allergic rhinitis (Chronic) Dental caries (Chronic) Medical History Submandibular abscess (~09/2017) Family History Other Drug abuse by member of household Social History Smoking/Tobacco Use Status: Never Smoking risk assessment performed?: Yes Drug use: Daily Substance use type: heroin Do you feel safe in your relationship?: Yes Exam Const General: cooperative and no acute distress Orientation: alert, awake and oriented x3 Limitations: mental status not altered Resp Effort & Inspection: normal respiratory effort and able to speak in complete s entences Cardio Rate: regular rate Rhythm: regular rhythm Neuro General: patient alert, patient awake, patient oriented x3, gait normal, tone normal, moves all extremities, normal light touch, pain and propioception and no focal motor deficits Motor: no movement abnormalities noted Sensory Exam: no sensory deficits noted Extrem General: normal exam except as noted Left upper extremity: shoulder/upper arm Details: laceration upper arm distal posterior Details: linear, actively bleeding, involving subcutaneous tissue, with motor nerve function intact and with sensation intact; no pulsatile bleeding, not with foreign body present and not contaminated Course Vital Signs Vital signs: Vital Signs Temperature 36.4 C L 04/05/22 21:21 Pulse 91 H 04/05/22 21:21 Respiratory Rate 16 04/05/22 21:21 Blood Pressure 155/54 H 04/05/22 21:21 Pulse Oximetry 95 04/05/22 21:21 Temperature 36.4 C L 04/05/22 21:21 Temperature Source Temporal Artery Scan 04/05/22 21:21 Pulse 91 H 04/05/22 21:21 Respiratory Rate 16 04/05/22 21:21 Respiratory Effort 04/05/22 21:21 Blood Pressure 155/54 H 04/05/22 21:21 Blood Pressure Position Sitting 04/05/22 21:21 Pulse Oximetry 95 04/05/22 21:21 Oxygen Delivery Method Room Air 04/05/22 21:21 Oxygen Flow Rate 0 04/05/22 21:21 Pain Level 5 04/05/22 21:21 Procedures Laceration Laceration 1: Site: upper extremity Side (If applicable): left Size (cm): 1.8 Description: linear and clean Depth: simple, single layer Local Anesthetic: Lidocaine 1% Amount of anesthesia used (mL): 5 Pre-repair: wound explored, irrigated extensively and deep structures intact Skin layer closed with: other (Prolene) Size (cm): 4-0 Number of sutures: 2 Technique: simple, interrupted
[2022-04-05] MEDS: Lidocaine 1% Pres-Free 5 ML VIAL (22:00)
[2022-04-05] MEDS: Tetanus & Diphtheria Tox,ADULT 0.5 ML VIAL IM (22:16)
== END 2022-04-05 22:11 | disposition home or self-care (01) ==
PROVIDERS: Emergency Provider Nurse Practitioner Family
DX: S41.112A Laceration without foreign body of left upper arm, initial encounter (principal); Z23 Encounter for immunization; W23.0XXA Caught, crushed, jammed, or pinched between moving objects, initial encounter; Y99.0 Civilian activity done for income or pay
CPT/HCPCS: 12001; 36415; 90471; 99283; 99282

== ENCOUNTER 2022-04-20 17:22 | Emergency (ER) | payer OTHER, SELFPAY ==
[2022-04-20 17:41] VITALS: BP 160/98; PULSE 73; RESP 18; TEMP 36.7; O2SAT 96
--- NOTE | 2022-04-20 17:53 | ED.GENADUL_ITS ---
Discharge Plan Disposition Patient Disposition: HOME Condition: Stable Discharge Details Clinical Impression: Visit for suture removal Primary Care Provider: Unknown,Unknown ED Provider: Minerva Hernandez Home Meds and New Rx's Prescriptions: Continued pantoprazole [Protonix] 40 MG tablet,delayed release (DR/EC) 40 mg PO DAILY Qty: 90 3RF albuterol sulfate [ProAir HFA] 8.5 GM HFA aerosol inhaler 2 puff Inhalation Q4H PRN PRN (Reason: Shortness Of Breath) Qty: 1 0RF acetaminophen [Mapap Extra Strength] 500 MG tablet 2 ea PO PRN PRN methadone 10 mg tablet 100 mg PO DAILY Discharge Instructions Instructions: Stitches Removal (ED) Additional Instructions: Keep wound clean and dry. Cover wound with bandage if risk of contamination. Otherwise you can keep the wound open to air if resting at home to allow edges to dry and heal. Follow up with your primary care doctor in 1 week as needed. Return to the emergency department with any worsening or new concerning symptoms. Discharge Data Discharge Physician: Minerva Hernandez Medical Decision Making 32-year-old male presents for suture removal of left elbow laceration with sutures placed 15 days ago. He was reportedly told to return to the ED on Tuesday for removal but patient was out of town. ED note states that patient had 2 Prolene sutures placed the patient states an additional suture was placed before discharge. There are 3 Prolene sutures noted in place without signs of cellulitis. Sutures were removed easily by nurse at bedside. Patient advised on proper wound care. Advised to follow up with the primary care doctor for re-evaluation. Usual and customary return precautions given prior to discharge. Medical Records Medical records reviewed: Yes I reviewed the patient's medical records. HPI General Mode of arrival: ambulatory . Date/Time Provider Initiated Documentation: 04/20/22 17:23 . Limitations to Documentation: no limitations . Information obtained by: patient . HPI Narrative: Patient is a 32-year-old male who presents for suture removal of sutures placed on 04/05 for left elbow laceration. He states the wound has been healing well and denies any complications. Related Data Home Medications Medication Instructions Recorded Confirmed albuterol sulfate 90 mcg/actuation 2 puff inhalation Q4H PRN PRN 05/22/15 04/20/22 aerosol inhaler (ProAir HFA) Shortness Of Breath ##1 pantoprazole 40 mg tablet,delayed 40 mg PO DAILY #90 tab-caps 05/23/17 04/20/22 release (Protonix) acetaminophen 500 mg tablet (Mapap 2 ea PO PRN PRN 08/04/17 04/20/22 Extra Strength) methadone 10 mg tablet 100 mg PO DAILY 04/20/22 04/20/22 Previous Rx's Medication Instructions Recorded albuterol sulfate 90 mcg/actuation 2 puff inhalation Q4H PRN PRN 05/22/15 aerosol inhaler (ProAir HFA) Shortness Of Breath ##1 pantoprazole 40 mg tablet,delayed 40 mg PO DAILY #90 tab-caps 05/23/17 release (Protonix) Allergies Allergy/AdvReac Type Severity Reaction Status Date / Time cephalexin Allergy Intermediate Rash Unverified 04/20/22 17:43 codeine AdvReac Mild GI Upset Unverified 04/20/22 17:43 in pill form only General Stated Complaint: SutureRem JOANNA: 4 Review of Systems All systems reviewed & are unremarkable except as noted in HPI and below Constitutional Constitutional: Reports as per HPI, Denies chills and Denies fever(s) Eyes Eyes: Denies blurry vision ENT Ears, Nose, Mouth, and Throat: Denies dizziness, Denies sore throat and Denies throat swelling Cardiovascular Cardiovascular: Denies chest pain and Denies dyspnea Respiratory Respiratory: Denies cough and Denies dyspnea Gastrointestinal Gastrointestinal: Denies abdominal pain, Denies diarrhea and Denies vomiting Genitourinary Genitourinary: Denies hematuria and Denies dysuria Musculoskeletal Musculoskeletal: Denies back pain and Denies numbness Integumentary/Breasts Skin/Breast: Denies lesions and Denies rash Neurologic Neurologic: Denies dizziness, Denies localized weakness and Denies numbness Allergic/Immunologic Allergic/Immunologic: Denies throat swelling PFSH All Active Problems (Updated 04/20/22 @ 17:57 by Minerva Hernandez DO) Laceration of left upper arm (Acute) Visit for suture removal (Acute) IV drug abuse (Acute) DVT prophylaxis (Acute) Discharge planning issues (Acute) Cellulitis of left arm (Acute) Obesity (Chronic) Mild intermittent asthma without complication (Chronic 06/04/15) patient states has not had exacerbation in years Gastroesophageal reflux disease (Chronic) Attention deficit hyperactivity disorder, predominantly inattentive type (Chronic) Anxiety (Chronic 01/18/13) Allergic rhinitis (Chronic) Dental caries (Chronic) Medical History Submandibular abscess (~09/2017) Family History Other Drug abuse by member of household Social History Smoking/Tobacco Use Status: Never Smoking risk assessment performed?: Yes Alcohol Intake: never Drug use: Daily Substance use type: marijuana Do you feel safe at home: Yes Do you feel safe in your relationship?: Yes Exam Const General: cooperative, healthy appearing and no acute distress Orientation: alert, awake and oriented x3 HENMT Head: normal to inspection Mouth: oral mucosae normal Eyes General: appearance normal, both eyes and all related structures Neck Neck: normal visual inspection Resp Effort & Inspection: normal respiratory effort and able to speak in complete sentences Cardio Rate: regular rate Skin General skin exam: no rashes or lesions noted Neuro General: patient alert, patient awake and patient oriented x3 Motor: muscle tone normal throughout Extrem Elbow/forearm/wrist images: 1. 1 cm laceration with 3 Prolene sutures noted in place. No surrounding erythema, edema, drainage. Wound appears to be healing well. Psych Appearance: grossly normal Affect: normal affect Course Vital Signs Vital signs: Vital Signs Temperature 98.1 F 04/20/22 17:41 Pulse 73 04/20/22 17:41 Respiratory Rate 18 04/20/22 17:41 Blood Pressure 160/98 H 04/20/22 17:41 Pulse Oximetry 96 04/20/22 17:41 Temperature 98.1 F 04/20/22 17:41 Temperature Source Temporal Artery Scan 04/20/22 17:41 Pulse 73 04/20/22 17:41 Respiratory Rate 18 04/20/22 17:41 Respiratory Effort 04/20/22 17:44 Blood Pressure 160/98 H 04/20/22 17:41 Blood Pressure Position Sitting 04/20/22 17:41 Pulse Oximetry 96 04/20/22 17:41 Oxygen Delivery Method Room Air 04/20/22 17:41 Oxygen Flow Rate 0 04/20/22 17:41 Pain Level 0 04/20/22 17:41
== END 2022-04-20 18:00 | disposition home or self-care (01) ==
PROVIDERS: Emergency Provider Physician Assistant
DX: S51.012D Laceration without foreign body of left elbow, subsequent encounter (principal); X58.XXXD Exposure to other specified factors, subsequent encounter
CPT/HCPCS: 99281

== ENCOUNTER 2025-07-17 21:44 | Emergency (ER) | payer MEDICARE, SELFPAY ==
[2025-07-17 21:44] VITALS: BP 163/97; PULSE 78; RESP 22; O2SAT 100
--- NOTE | 2025-07-17 21:49 | W.ED.GENAD ---
Discharge Plan Disposition Patient Disposition: Against Medical Advice Condition: Serious Discharge Details Clinical Impression: Overdose Primary Care Provider: Unknown,Unknown ED Provider: Darwin Clemente Home Meds and New Rx's Prescriptions: Continued albuterol sulfate [ProAir HFA] 8.5 GM HFA aerosol inhaler 2 puff Inhalation Q4H PRN PRN (Reason: Shortness Of Breath) Qty: 1 0RF acetaminophen [Mapap Extra Strength] 500 MG tablet 2 ea PO PRN PRN methadone 10 mg tablet 100 mg PO DAILY Patient Comments: pt states his dose is 130mg No Action pantoprazole [Protonix] 40 MG tablet,delayed release (DR/EC) 40 mg PO DAILY Qty: 90 3RF Discharge Instructions Stand Alone Forms: Portal Information HPI General Mode of arrival: ambulatory. Date/Time Provider Initiated Documentation: 07/17/25 21:44. Limitations to Documentation: no limitations. Information obtained by: patient. History of Present Illness 35 year old M presents to the emergency department with the chief complaint of anxious after smoking fentanyl, described as moderate, Patient started experiencing this minute(s) (40) and it has been constant. No relieving factors improve symptom(s), No exacerbating factors reported . Patient notes denies chest pain and shortness of breath. Patient did receive the following treatments prior to arrival, none Related Data Home Medications ?Medication ?Instructions ?Recorded ?Confirmed albuterol sulfate 90 mcg/actuation 2 puff inhalation Q4H PRN PRN 05/22/15 07/17/25 aerosol inhaler (ProAir HFA) Shortness Of Breath ##1 pantoprazole 40 mg tablet,delayed 40 mg PO DAILY #90 tab-caps 05/23/17 07/17/25 release (Protonix) acetaminophen 500 mg tablet (Mapap 2 ea PO PRN PRN 08/04/17 07/17/25 Extra Strength) methadone 10 mg tablet 100 mg PO DAILY 04/20/22 07/17/25 Previous Rx's ?Medication ?Instructions ?Recorded albuterol sulfate 90 mcg/actuation 2 puff inhalation Q4H PRN PRN 05/22/15 aerosol inhaler (ProAir HFA) Shortness Of Breath ##1 pantoprazole 40 mg tablet,delayed 40 mg PO DAILY #90 tab-caps 05/23/17 release (Protonix) Allergies Allergy/AdvReac Type Severity Reaction Status Date / Time cephalexin Allergy Intermediate Rash Unverified 07/17/25 21:55 codeine AdvReac Mild GI Upset Unverified 07/17/25 21:55 in pill form only General JOANNA: 4 Review of Systems All systems reviewed & are unremarkable except as noted in HPI and below Constitutional Constitutional: Denies chills, Denies fever(s) and Denies weakness Cardiovascular Cardiovascular: Denies chest pain and Denies dyspnea Respiratory Respiratory: Denies cough and Denies dyspnea Gastrointestinal Gastrointestinal: Denies abdominal pain, Denies nausea and Denies vomiting Neurologic Neurologic: Denies weakness Psychiatric Psychiatric: Reports anxiety, Denies homicidal ideation and Denies suicidal ideation Exam Const General: no acute distress and anxious Orientation: alert HENMT Mouth: moist mucous membranes Eyes General: appearance normal, both eyes and all related structures Neck Neck: normal visual inspection Resp Effort & Inspection: normal respiratory effort and able to speak in complete sentences Cardio Rate: regular rate Skin General skin exam: no rashes or lesions noted Neuro General: patient alert and patient oriented x3 Extrem General: normal to inspection Psych Mental Status: mental status grossly normal Medical Decision Making 35-year-old male with a history of substance abuse comes in after he states he smoked fentanyl but thinks it may have also been crack started to feel anxious and that he might overdose on it so came here. He took this about 40 minutes ago and has not had any loss of consciousness. He ambulated into the emergency department. He is very anxious on exam speaking rapidly. Denies any other drugs or alcohol use tonight. He is moving all his extremities well and is oriented x 4. He denies any SI or HI. I suspect he is having anxiety from the drugs, we will keep him on telemetry monitoring and treat with a dose of Ativan and reassess. Patient requested to leave, I advised we normally monitor for least an hour for potential overdoses, he has medical decision-making capacity and does not want to stay and understands the risk of leaving including potential and disability. He denies any SI or HI and is currently oriented x 4 speaking clearly. He is clinically sober. He is leaving AGAINST MEDICAL ADVICE. He declined to meet with addictions recovery specialist. He is going to follow-up with his PCP and he understands he can return anytime if he changes his mind. Patient eloped before discharge instructions could be given but he was given verbal instructions to see his PCP as soon as possible and was advised to return if he changes his mind or if he has any worsening symptoms or concerning symptoms. Differential Diagnosis Differential Diagnosis: overdose, anxiety PFSH All Active Problems (Updated 07/17/25 @ 22:02 by Darwin Clemente MD) Overdose (Acute) IV drug abuse (Acute) DVT prophylaxis (Acute) Discharge planning issues (Acute) Cellulitis of left arm (Acute) Obesity (Chronic) Mild intermittent asthma without complication (Chronic 06/04/15) patient states has not had exacerbation in years Gastroesophageal reflux disease (Chronic) Attention deficit hyperactivity disorder, predominantly inattentive type (Chronic) Anxiety (Chronic 01/18/13) Allergic rhinitis (Chronic) Dental caries (Chronic) Medical History Submandibular abscess (~09/2017) Family History Other Drug abuse by member of household Social History Smoking/Tobacco Use Status: Never Smoking risk assessment performed?: Yes Alcohol Intake: never Drug use: Daily Substance use type: marijuana Housing: apartment Do you feel safe at home: Yes Do you feel safe in your relationship?: Yes
[2025-07-17 21:52] VITALS: RESP 22
[2025-07-17] MEDS: LORazepam 1 MG TAB PO (21:58)
== END 2025-07-17 22:03 | disposition left against medical advice (07) ==
LOC: ER 22:08
PROVIDERS: Emergency Provider Emergency Medicine
DX: T40.411A Poisoning by fentanyl or fentanyl analogs, accidental (unintentional), initial encounter (principal); Z53.20 Procedure and treatment not carried out because of patient's decision for unspecified reasons
CPT/HCPCS: 99282; 99283